=== PATIENT | male | born 1945 | race Caucasian/White ===

== ENCOUNTER → 2016-09-05 | Outpatient (CLI) | payer OTHER ==
[~2016-09-05] MED LIST: ACET1TAB84 PO; CYAN100020 PO; FINA5TAB PO; GABA-112 PO; GABAPENTIN PO; HYDR-5688 PO; METF500T5 PO; MISCCAP80 PO; MULTTAB45 PO; PRD20 PO; RXC5 PO; TAMS0.4C38 PO; TRAM-10 PO; [UNRECOGNIZED DRUG - CODE] NAE
[2016-09-05 12:24] LABS: BLOOD UREA NITROGEN 18 mg/dl (7-18); BUN/CREATININE RATIO 20.3 (10-20); CALCIUM 9.4 mg/dl (8.5-10.1); CARBON DIOXIDE 28 mmol/L (21-32); CHLORIDE 107 mmol/L (98-107); CREATININE 0.88 mg/dl (0.60-1.40); GLUCOSE 143 mg/dl (70-99); POTASSIUM 4.1 mmol/L (3.5-5.1); SODIUM 142 mmol/L (136-145)
[2016-09-05 12:37] LABS: ESTIMATED AVERAGE GLUCOSE 148 mg/dl; HA1C FLAG Normal (Normal)
[2016-09-05 12:38] LABS: CHOLESTEROL/HDL RATIO 2.9
== END | disposition home or self-care (01) ==
LOC: C.LABPVFM 09:35
PROVIDERS: ATTEND Nurse Practitioner
DX: E11.9 Type 2 diabetes mellitus without complications (principal); Z11.59 Encounter for screening for other viral diseases

== ENCOUNTER → 2016-09-11 | Outpatient (CLI) | payer OTHER ==
--- NOTE | 2016-09-11 11:07 | DIAGNOSTIC IMAGING REPORT ---
ANKLE BRACHIAL INDEX COMPLETE ULTRASOUND CLINICAL HISTORY: LEG PAIN COMPARISON STUDY: None. FINDINGS: On the right, the ankle brachial index measured with the posterior tibial artery was 1.0 and the dorsalis pedis artery was 0.98. On the left, the ankle-brachial index measured with the posterior tibial artery was 0.95 and the dorsalis pedis artery was 0.96. IMPRESSION: Normal bilateral ankle brachial indices as described above. Electronically signed by: Víctor Fisher M.D. 09/11/2016 11:06 AM Dictated Date/Time: 09/11/2016 11:05 AM
--- NOTE | 2016-09-11 12:57 | DIAGNOSTIC IMAGING REPORT ---
ULTRASOUND BILATERAL LOWER EXTREMITY ARTERIAL CLINICAL HISTORY: Chronic leg pain. COMPARISON STUDY: No priors. TECHNIQUE: Real-time, grayscale, and color Doppler sonography of the arteries of the right and left lower extremity is performed from the inguinal crease to the foot. FINDINGS: Right lower extremity: No significant atherosclerotic plaque is identified. There are triphasic arterial waveforms in the right common femoral artery with velocities measuring up to 106 cm/s. The profunda femoris artery is patent with velocities measuring up to 66 cm/s. There are normal triphasic arterial waveforms in the right superficial femoral artery with velocities measuring up to 109 cm/s. There are triphasic waveforms in the popliteal artery with velocities measuring up to 90 cm/s. There is three-vessel runoff to the foot. The dorsalis pedis artery is patent with velocities measuring up to 87 cm/s. Left lower extremity: No significant atherosclerotic plaque is identified in the arteries of the left lower extremity. There are normal triphasic arterial waveforms in the left common femoral artery with velocities measuring up to 66 cm/s. The left profunda femoris artery is patent with velocities measuring up to 73 cm/s. Triphasic waveforms are seen throughout the left superficial femoral artery with velocities measuring up to 113 cm/s. There are triphasic waveforms in the popliteal artery with velocities measuring up to 107 cm/s. There is three-vessel runoff to the left foot. Velocities in the left dorsalis pedis artery measure up to 71 cm/s. IMPRESSION: There is no sonographic evidence of high-grade stenosis or focal vessel cut-off throughout the arteries of the right or left lower extremity. See above. Dictated: 09/11/2016 12:22 PM Transcribed: 09/11/2016 12:57 PM [email or web address]_Tone Electronically signed by: Brenden Morales M.D. 09/11/2016 1:02 PM Dictated Date/Time: 09/11/2016 12:22 PM
== END | disposition home or self-care (01) ==
LOC: C.ULTR 09:28
PROVIDERS: ATTEND Nurse Practitioner
DX: R20.9 Unspecified disturbances of skin sensation (principal); M79.605 Pain in left leg; M79.604 Pain in right leg

== ENCOUNTER → 2016-11-13 | Outpatient (CLI) | payer OTHER ==
[~2016-11-13] MED LIST changes: +AZITTAB PO; +FRRS300 PO; +NSF10F NAE; +XRL10 PO
== END | disposition home or self-care (01) ==
LOC: C.LABSPEC 17:47
PROVIDERS: ATTEND Urology
DX: R35.0 Frequency of micturition (principal); N40.1 Benign prostatic hyperplasia with lower urinary tract symptoms

== ENCOUNTER 2016-12-20 13:11 | Emergency (ER) | payer OTHER ==
[~2016-12-20] VITALS: Ht 162.6 cm; Wt 98.0 kg
[~2016-12-20 13:11] MED LIST changes: -ACET1TAB84 PO; -AZITTAB PO; -FRRS300 PO; -GABA-112 PO; -GABAPENTIN PO; -HYDR-5688 PO; -MISCCAP80 PO; -NSF10F NAE; -RXC5 PO; -TRAM-10 PO; -XRL10 PO; -[UNRECOGNIZED DRUG - CODE] NAE
[2016-12-20 13:21] VITALS: TEMP 36.7; Ht 162.6 cm; Wt 98.0 kg
[2016-12-20] MEDS ORDERED: HYDROCODONE/ACETAMOPHEN 5/325MG TAB PO STA (14:29)
--- NOTE | 2016-12-20 15:06 | DIAGNOSTIC IMAGING REPORT ---
LEFT KNEE 1 OR 2 VIEWS ROUTINE CLINICAL HISTORY: Left knee pain COMPARISON: None. DISCUSSION: No acute fractures are visualized. There are moderately advanced osteoarthritic changes most pronounced involving the medial joint compartment and patellofemoral joint. There is a probable small medial joint compartment loose body. There is a very small supratentorial joint effusion. Irregularity anterior tibial tuberosity is felt to be chronic. IMPRESSION: No acute fractures. Moderately advanced osteoarthritic changes. Electronically signed by: Lexa Park M.D. 12/20/2016 3:05 PM Dictated Date/Time: 12/20/2016 3:04 PM
[2016-12-20 15:27] LABS: BASO % 0.2 %; BASO ABS # 0.01 K/uL (0-0.2); COMPLETE YES; EOS % 2.2 %; IG% 0.2 %; LYMPH % 39.7 %; LYMPH ABS # 2.12 K/uL (1.2-3.4); MEAN CELL VOLUME 85.8 fL (80-100); MEAN CORPUSCULAR HEMOGLOBIN 29.9 pg (25-34); MEAN CORPUSCULAR HGB CONC 34.8 g/dl (32-36); MEAN PLATELET VOLUME 9.9 fL (7.4-10.4); MONO % 6.7 %; PLATELET COUNT 190 K/uL (130-400); RED BLOOD COUNT 5.36 M/uL (4.7-6.1); WHITE BLOOD COUNT 5.34 K/uL (4.8-10.8)
[2016-12-20] MEDS ORDERED: MISCCAP80 PO (15:46)
--- NOTE | 2016-12-20 15:47 | DIAGNOSTIC IMAGING REPORT ---
LEFT LOWER EXTREMITY VENOUS DOPPLER CLINICAL HISTORY: Left leg pain. COMPARISON STUDY: No previous studies for comparison. TECHNIQUE: Sonography of the deep venous system of the left lower extremity was performed. Compression and augmentation were evaluated. FINDINGS: The left common femoral, superficial femoral and popliteal veins were compressible. Augmentation was normal. Flow was shown within the deep calf vessels. IMPRESSION: No evidence of deep venous thrombus within the left lower extremity. Electronically signed by: Oliver Cobos M.D. 12/20/2016 3:45 PM Dictated Date/Time: 12/20/2016 3:45 PM
[2016-12-20] MEDS ORDERED: GABAPENTIN PO (15:49)
[2016-12-20 15:53] LABS: ALT/SGPT 23 U/L (12-78); AST/SGOT 7 U/L (15-37); BLOOD UREA NITROGEN 16 mg/dl (7-18); BUN/CREATININE RATIO 19.4 (10-20); CARBON DIOXIDE 29 mmol/L (21-32); CHLORIDE 107 mmol/L (98-107); CREATININE 0.81 mg/dl (0.60-1.40); GLUCOSE 112 mg/dl (70-99); POTASSIUM 3.9 mmol/L (3.5-5.1); SODIUM 142 mmol/L (136-145); URIC ACID 3.5 mg/dl (2.6-7.2)
[2016-12-20 16:04] LABS: ALKALINE PHOSPHATASE 99 U/L (45-117); C-REACTIVE PROTEIN < 0.29 mg/dl (0-0.29)
[2016-12-20 16:26] LABS: LYME DISEASE AB IGG NEG (NEG); LYME DISEASE AB IGM NEG (NEG)
[2016-12-20] MEDS ORDERED: HYDR-5688 PO (16:47)
[2016-12-20 17:05] VITALS: BP 165/91; PULSE 86; O2SAT 96
--- NOTE | 2016-12-20 18:01 | EMERGENCY ROOM VISIT NOTE ---
History Report prepared by Karli: Claritza Pimentel Under the Supervision of: Dr. Oscar James M.D. First contact with patient: 14:12 Chief Complaint: KNEEPAIN Stated Complaint: KNEE, SEVERE LOWER LEG PAIN History of Present Illness The patient is a 71 year old male who presents to the Emergency Room with complaints of waxing and waning left lower extremity pain starting about 2 weeks ago. The patient had a left knee surgery in mid-October. About 2 weeks ago, the patient started having worsening left knee pain. He is unable to put weight on the left knee. He also started having pain radiating up and down the left leg. He currently rates a pain intensity of 7/10. He has worsening pain with sitting and lying down. He denies any recent falls. His next appointment with his orthopedic surgeon is on December 24. Pt denies LOC, headache, fevers, chills, diaphoresis, visual changes, neck pain, chest pain, breathing difficulties, nausea, vomiting, abdominal pain, back pain, melena, hematochezia, urinary symptoms, numbness, weakness, lymphadenopathy, rash, or other complaints. Source of History: patient Onset: about 2 weeks ago Position: other (left lower extremity ) Symptom Intensity: 7/10 Timing: waxes/wanes Modifying Factors (Worsening): other (sitting and lying down) Review of Systems See HPI for pertinent positives and negatives. A total of ten systems were reviewed and were otherwise negative. Past Medical & Surgical Surgical Problems: (1) H/O left knee surgery (2) Previous back surgery Family History FHx: heart disease Social History Smoking Status: Never Smoker Drug Use: none Marital Status: Housing Status: lives with family Current/Historical Medications Scheduled Metformin Hcl Er (Glucophage Er), 500 MG PO BID Multiple Vitamin (Multiple Vitamin), 1 TAB PO DAILY Probiotic Product (Probiotic), 1 CAP PO DAILY Tamsulosin Hcl (Flomax), 0.4 MG PO DAILY [Gabapentin], 1 DOSE PO TID Scheduled PRN Hydrocodone/Acetaminophen 5MG/325MG ([place] 5MG/325MG), 1-2 TABS PO Q6H PRN for Pain Allergies Coded Allergies: Aspirin (Verified Allergy, Unknown, HIVES W/ CONTINUED USE, 11/20/15) Latex1 -Allergic Contact Dermititis (Unverified Allergy, Unknown, dermatitis, 11/20/15) Celecoxib (Verified Adverse Reaction, Mild, BLOOD IN STOOL, 11/20/15) Rofecoxib (Verified Adverse Reaction, Mild, BLOOD IN STOOL, 11/20/15) Physical Exam Vital Signs Date Time Temp Pulse Resp B/P Pulse Ox O2 Delivery O2 Flow Rate FiO2 12/20/16 17:05 86 20 165/91 96 Room Air 12/20/16 15:51 70 18 152/88 98 Room Air 12/20/16 14:39 75 18 159/96 95 Room Air 12/20/16 13:21 36.7 79 18 180/108 97 Physical Exam GENERAL: Awake, alert, uncomfortable-appearing, in no distress HENT: Normocephalic, atraumatic. Oropharynx unremarkable. EYES: Normal conjunctiva. Sclera non-icteric. NECK: Supple. No nuchal rigidity. FROM. No JVD. RESPIRATORY: Clear to auscultation. CARDIAC: Regular rate, normal rhythm. Extremities warm and well perfused. Pulses equal. ABDOMEN: Soft, non-distended. No tenderness to palpation. No rebound or guarding. No masses. RECTAL: Deferred. MUSCULOSKELETAL: Chest examination reveals no tenderness. The back is symmetrical on inspection without obvious abnormality. There is no CVA tenderness to palpation. No joint edema. LOWER EXTREMITIES: Calves are equal size bilaterally and non-tender. No edema. No discoloration. Range of motion is limit of the left knee, mild tenderness of the knee, no swelling, no laxity. Mild hamstring tenderness on the left side. NEURO: Normal sensorium. No sensory or motor deficits noted. SKIN: No rash or jaundice noted. Medical Decision & Procedures ER Provider Diagnostic Interpretation: X-ray: Per my interpretation, radiologist review. LEFT KNEE 1 OR 2 VIEWS ROUTINE CLINICAL HISTORY: Left knee pain COMPARISON: None. DISCUSSION: No acute fractures are visualized. There are moderately advanced osteoarthritic changes most pronounced involving the medial joint compartment and patellofemoral joint. There is a probable small medial joint compartment loose body. There is a very small supratentorial joint effusion. Irregularity anterior tibial tuberosity is felt to be chronic. IMPRESSION: No acute fractures. Moderately advanced osteoarthritic changes. Electronically signed by: Lexa Park M.D. 12/20/2016 3:05 PM Dictated Date/Time: 12/20/2016 3:04 PM US: Radiology results as stated below per my review and radiologist interpretation LEFT LOWER EXTREMITY VENOUS DOPPLER CLINICAL HISTORY: Left leg pain. COMPARISON STUDY: No previous studies for comparison. TECHNIQUE: Sonography of the deep venous system of the left lower extremity was performed. Compression and augmentation were evaluated. FINDINGS: The left common femoral, superficial femoral and popliteal veins were compressible. Augmentation was normal. Flow was shown within the deep calf vessels. IMPRESSION: No evidence of deep venous thrombus within the left lower extremity. Electronically signed by: Oliver Cobos M.D. 12/20/2016 3:45 PM Dictated Date/Time: 12/20/2016 3:45 PM Laboratory Results 12/20/16 15:14 Red Blood Count 5.36, Mean Corpuscular Volume 85.8, Mean Corpuscular Hemoglobin 29.9, Mean Corpuscular Hemoglobin Concent 34.8, Mean Platelet Volume 9.9, Neutrophils (%) (Auto) 51.0, Lymphocytes (%) (Auto) 39.7, Monocytes (%) (Auto) 6.7, Eosinophils (%) (Auto) 2.2, Basophils (%) (Auto) 0.2, Neutrophils # (Auto) 2.72, Lymphocytes # (Auto) 2.12, Monocytes # (Auto) 0.36, Eosinophils # (Auto) 0.12, Basophils # (Auto) 0.01 12/20/16 15:14 Test 12/20/16 15:14 White Blood Count 5.34 K/uL (4.8-10.8) Red Blood Count 5.36 M/uL (4.7-6.1) Hemoglobin 16.0 g/dL (14.0-18.0) Hematocrit 46.0 % (42-52) Mean Corpuscular Volume 85.8 fL (80-100) Mean Corpuscular Hemoglobin 29.9 pg (25-34) Mean Corpuscular Hemoglobin Concent 34.8 g/dl (32-36) Platelet Count 190 K/uL (130-400) Mean Platelet Volume 9.9 fL (7.4-10.4) Neutrophils (%) (Auto) 51.0 % Lymphocytes (%) (Auto) 39.7 % Monocytes (%) (Auto) 6.7 % Eosinophils (%) (Auto) 2.2 % Basophils (%) (Auto) 0.2 % Neutrophils # (Auto) 2.72 K/uL (1.4-6.5) Lymphocytes # (Auto) 2.12 K/uL (1.2-3.4) Monocytes # (Auto) 0.36 K/uL (0.11-0.59) Eosinophils # (Auto) 0.12 K/uL (0-0.5) Basophils # (Auto) 0.01 K/uL (0-0.2) RDW Standard Deviation 41.2 fL (36.4-46.3) RDW Coefficient of Variation 13.0 % (11.5-14.5) Immature Granulocyte % (Auto) 0.2 % Immature Granulocyte # (Auto) 0.01 K/uL (0.00-0.02) Erythrocyte Sedimentation Rate 2 mm/hr (0-14) Anion Gap 6.0 mmol/L (3-11) Est Creatinine Clear Calc Drug Dose 89.7 ml/min Estimated GFR () 104.4 Estimated GFR (Non- 90.0 BUN/Creatinine Ratio 19.4 (10-20) Uric Acid 3.5 mg/dl (2.6-7.2) Calcium Level 9.0 mg/dl (8.5-10.1) Total Bilirubin 0.6 mg/dl (0.2-1) Direct Bilirubin 0.2 mg/dl (0-0.2) Aspartate Amino Transf (AST/SGOT) 7 U/L (15-37) Alanine Aminotransferase (ALT/SGPT) 23 U/L (12-78) Alkaline Phosphatase 99 U/L (45-117) C-Reactive Protein < 0.29 mg/dl (0-0.29) Total Protein 7.2 gm/dl (6.4-8.2) Albumin 3.8 gm/dl (3.4-5.0) Thyroid Stimulating Hormone (TSH) 1.930 uIu/ml (0.300-4.500) Lyme Disease IgG Antibody NEG (NEG) Lyme Disease IgM Antibody NEG (NEG) Laboratory results reviewed by me Medications Administered Medications (Trade) Dose Ordered Sig/Heriberto Route Start Time Stop Time Status Last Admin Dose Admin Acetaminophen/ Hydrocodone Bitart ([place] 5/325 Tab) 1 tab NOW STAT PO 12/20/16 14:29 12/20/16 14:31 DC 12/20/16 14:41 1 TAB ED Course 1412: The patient was evaluated in room C05. A complete history and physical exam was performed. 1429: [place] 5/325 Tab 1 tab PO 1642: I reevaluated the patient. Discussed results and discharge instructions: He verbalized understanding and agreement. The patient is ready for discharge. Medical Decision Prior records reviewed and summarized above. Triage Nursing notes reviewed and agree them. Additional history obtained from his . The patient's history was concerning for ongoing knee pain Differential diagnosis: Etiologies such as arthritis, DJD, lyme, fracture, neurovascular compromise, soft tissue injury, as well as others were entertained. Physical examination: Consistent with exacerbation of chronic knee pain ER treatment provided: Oral [place] On reassessment the patient felt better. Diagnostics interpreted by me: The labs revealed an unremarkable CBC, coags, Lyme screen, ESR, and chemistry panel. Imaging studies: Xray and ultrasound as above. The patient has a history of knee problems. His x-ray showed degenerative changes. No DVT noted. The patient felt better with the [place]. He does not have pain prescription at home. I discussed pain management until his follow- up on Friday with orthopedics. The patient was in agreement. If he worsens in any way he will come back to the emergency department for reevaluation. By the evaluation outlined above emergent etiologies such as fracture, dislocation, neurovascular compromise, compartment syndrome, infections, as well as others were deemed relatively unlikely. The patient and were informed about the findings as listed above. All questions were answered and they were pleased with the treatment. Return instructions were outlined and the patient was discharged in stable condition. Prescription management: [place] Referral: The patient was referred to Dr. Martinez of Orthopedics for follow-up care. The chart was completed utilizing [employer] Speech voice recognition software. Grammatical errors, random word insertions, pronoun errors, and incomplete sentences are an occasional consequence of this system due to software limitations, ambient noise, and hardware issues. Any formal questions or concerns about the content, text, or information contained within the body of this dictation should be directly addressed to the physician for clarification. [place] Drug Monitoring Program Search Results: patient reviewed within database, no issues identified Impression Primary Impression: Knee pain Scribe Attestation The scribe's documentation has been prepared under my direction and personally reviewed by me in its entirety. I confirm that the note above accurately reflects all work, treatment, procedures, and medical decision making performed by me. Departure Information Dispostion Home / Self-Care Prescriptions Hydrocodone/Acetaminophen 5MG/325MG ([place] 5MG/325MG) Tab 1-2 TABS PO Q6H Y for Pain, #20 TAB Prov: Oscar James MD 12/20/16 Referrals Julia uNnez C.R.N.P (PCP) Forms HOME CARE DOCUMENTATION FORM, IMPORTANT VISIT INFORMATION Patient Instructions My [facility] Additional Instructions ORTHOPEDIC INSTRUCTIONS: DO NOT drive, drink alcohol, operate machinery, or perform dangerous activities today. You were given medications in the ER that can affect your ability to safely function or operate a vehicle. Hydrocodone/acetaminophen 5/325mg: Take 1-2 pills every 6 hours as needed for pain. Avoid additional Acetaminophen/Tylenol, alcohol, operating machinery or dangerous equipment, working on ladders or roofs, DRIVING, or situations where being under the influence may be dangerous. It is recommended to use a stool softener such as Colace, 100mg twice daily while taking this medication to avoid constipation. Ice compresses for 20 minutes at a time four times daily for 2-3 days. Use the crutch or cane as instructed. Rest and elevate your injury. Return to the ER immediately for any numbness, tingling, severe pain, extreme swelling in the extremity or as needed. Follow-up with orthopedics as scheduled. Problem Qualifiers Primary Impression: Knee pain Laterality: left Chronicity: chronic Qualified Codes: M25.562 - Pain in left knee; G89.29 - Other chronic pain
[2017-03-10] MEDS ORDERED: GABA-112 PO (11:45)
[2017-03-10] MEDS ORDERED: TRAM-10 PO (12:01)
[2017-04-01] MEDS ORDERED: RXC5 PO (13:21)
[2017-04-02] MEDS ORDERED: TRAM-10 PO (09:54)
[2017-06-02] MEDS ORDERED: NSF10F NAE (11:10)
[2017-06-29] MEDS ORDERED: XRL10 PO (06:32)
[2017-06-29] MEDS ORDERED: RXC5 PO (06:32)
== END 2016-12-20 17:08 | disposition home or self-care (01) ==
LOC: C.EDB 13:15 → C.EDC 17:08
DX: M25.562 Pain in left knee (principal); G89.29 Other chronic pain; Z82.49 Family history of ischemic heart disease and other diseases of the circulatory system; Z79.899 Other long term (current) drug therapy; M79.605 Pain in left leg

== ENCOUNTER → 2017-03-03 | Outpatient (CLI) | payer OTHER ==
[~2017-03-03] MED LIST changes: +ACET1TAB84 PO; -CYAN100020 PO; -FINA5TAB PO; +GABA-112 PO; +GABAPENTIN PO; +HYDR-5688 PO; +MISCCAP80 PO; -PRD20 PO; +RXC5 PO; +TRAM-10 PO; +[UNRECOGNIZED DRUG - CODE] NAE
[2017-03-04 05:55] LABS: ESTIMATED AVERAGE GLUCOSE 140 mg/dl; HA1C FLAG Normal (Normal)
== END | disposition home or self-care (01) ==
LOC: C.LABPVFM 11:41
PROVIDERS: ATTEND Nurse Practitioner
DX: E11.9 Type 2 diabetes mellitus without complications (principal)

== ENCOUNTER 2017-04-01 05:19 | Inpatient (IN) | payer OTHER ==
[2017-03-10 11:19] VITALS: BMI 35.0
[2017-03-10 12:00] LABS: BASO % 0.1 %; BASO ABS # 0.01 K/uL (0-0.2); COMPLETE YES; HEMATOCRIT 42.9 % (42-52); IG% 0.1 %; LYMPH ABS # 3.03 K/uL (1.2-3.4); MEAN CORPUSCULAR HGB CONC 33.3 g/dl (32-36); MEAN PLATELET VOLUME 10.4 fL (7.4-10.4); MONO % 5.3 %; NEUT % 49.5 %; PLATELET COUNT 199 K/uL (130-400); RED BLOOD COUNT 4.93 M/uL (4.7-6.1); WHITE BLOOD COUNT 7.04 K/uL (4.8-10.8)
--- NOTE | 2017-03-10 12:03 | PAT Medication Instructions ---
Service Date Mar 10, 2017. Current Home Medication List Gabapentin (Neurontin), 100 MG PO HS Metformin Hcl Er (Glucophage Er), 500 MG PO BID Multiple Vitamin (Multiple Vitamin), 1 TAB PO QPM Probiotic Product (Probiotic), 1 CAP PO QDL Tamsulosin Hcl (Flomax), 0.4 MG PO QDL Tramadol (Ultram), 50 MG PO Q6 PRN for Pain Medication Instructions For Your Scheduled Surgery - Hold the following medications 48 hours prior to surgery: Metformin Hcl Er (Glucophage Er), 500 MG PO BID - Hold the following medications the morning of surgery: Probiotic Product (Probiotic), 1 CAP PO QDL - Take the following medications the morning of surgery with a sip of water OTHERWISE NOTHING TO EAT OR DRINK AFTER MIDNIGHT: Tramadol (Ultram), 50 MG PO Q6 PRN for Pain (may take if needed up to 4 hours prior to surgery) Tamsulosin Hcl (Flomax), 0.4 MG PO QDL (time permitting) - Take the following medications as scheduled the night before surgery: Tramadol (Ultram), 50 MG PO Q6 PRN for Pain Gabapentin (Neurontin), 100 MG PO HS Multiple Vitamin (Multiple Vitamin), 1 TAB PO QPM If you have any questions please call us at [phone] or [phone] or [phone]
[2017-03-10 12:09] LABS: URINE APPEARANCE CLEAR (CLEAR); URINE BILIRUBIN NEG (NEG); URINE COLOR YELLOW; URINE NITRITE NEG (NEG); URINE SPECIFIC GRAVITY 1.018 (1.000-1.030); UROBILINOGEN NEG (NEG); ZZUR CULT IF INDIC CLEAN CATCH NO
[2017-03-10 12:14] LABS: BUN/CREATININE RATIO 21.2 (10-20); CALCIUM 8.9 mg/dl (8.5-10.1); CREATININE 0.84 mg/dl (0.60-1.40); POTASSIUM 4.1 mmol/L (3.5-5.1)
[2017-03-10 12:25] LABS: MANUAL MICROSCOPIC REQUIRED? NO; REVIEW REQ? NO
--- NOTE | 2017-03-10 12:42 | DIAGNOSTIC IMAGING REPORT ---
CHEST PREADMISSION(PA/LAT) HISTORY: Preop. COMPARISON: Chest 11/20/2015. FINDINGS: The lungs are clear. Cardiac silhouette is normal in size. No pleural effusions. No pneumothorax. IMPRESSION: No acute process. Electronically signed by: Víctor Fisher M.D. 03/10/2017 12:40 PM Dictated Date/Time: 03/10/2017 12:36 PM
[~2017-04-01] VITALS: Ht 162.6 cm; Wt 94.0 kg
[2017-04-01] VITALS (16 sets, daily range): BP systolic 154–184; BP diastolic 78–95; PULSE 58–91; TEMP 36.3–36.9; O2SAT 94–99; Ht 162.6 cm; Wt 94.0 kg
[~2017-04-01 05:19] MED LIST changes: -ACET1TAB84 PO; -GABAPENTIN PO; -HYDR-5688 PO; -RXC5 PO; -[UNRECOGNIZED DRUG - CODE] NAE
[2017-04-01] MEDS ORDERED: CEFAZOLIN 2000 MG/60 ML D5W 60 ML IV SCH (06:00)
[2017-04-01] MEDS ORDERED: LACTATED RINGER'S 1000ML 1,000 ML IV SCH (06:00)
[2017-04-01] MEDS ORDERED: ACET1TAB84 PO (06:01)
[2017-04-01] MEDS ORDERED: [UNRECOGNIZED DRUG - CODE] NAE (06:01)
[2017-04-01] MEDS ORDERED: MIDAZOLAM HCL 1 MG/ML 2ML VIAL ONE (06:37)
[2017-04-01] MEDS ORDERED: FENTANYL CITRATE INJ 50 MCG/1 ML 2 ML VIAL ONE ×4 (06:37→09:28)
[2017-04-01] MEDS ORDERED: SODIUM CHLORIDE 0.9% PF 50 ML VIAL ONE (06:57)
[2017-04-01] MEDS ORDERED: BACITRACIN 50000 UNIT VIAL ONE (06:57)
[2017-04-01] MEDS ORDERED: ATROPINE SULFATE 0.1 MG/ML 5ML SYR IV PRN (07:00)
[2017-04-01] MEDS ORDERED: ONDANSETRON INJ 2 MG/ML 2 ML VIAL IV PRN ×2 (07:00→09:45)
[2017-04-01] MEDS ORDERED: EpHEDrine SULFATE INJ 50 MG/ML AMP IV PRN (07:00)
[2017-04-01] MEDS ORDERED: HYDROmorphone INJ 1 MG/ML SYR IV PRN ×2 (07:00→12:15)
[2017-04-01] MEDS ORDERED: FENTANYL CITRATE INJ 50 MCG/1 ML 2 ML VIAL IV PRN (07:00)
[2017-04-01] MEDS ORDERED: MEPERIDINE HCL 25 MG/ML CARP IV PRN (07:00)
--- NOTE | 2017-04-01 07:32 | History & Physical Bridge Note ---
H&P Re-Evaluation Bridge Note: I have examined the patient, reviewed the History & Physical and in the interval since the performance of the History & Physical I have noted the following changes of clinical significance: No changes noted
--- NOTE | 2017-04-01 07:33 | History and Physical ---
History & Physical Date Apr 01, 2017. Chief Complaint Neck and arm pain History of Present Illness The patient is a 71 year old male with complaints of Past Medical/Surgical History Surgical Problems: (1) H/O left knee surgery (2) Previous back surgery Additional History Hepatic Disease: No Endocrine Disorder: No Kidney Disease: No Hypertension: No Heart Disease: No Bleeding Tendencies: No Infectious Diseases: No Allergies Coded Allergies: Aspirin (Verified Allergy, Intermediate, HIVES W/ CONTINUED USE, 04/01/17) Latex1 -Allergic Contact Dermititis (Verified Allergy, Intermediate, dermatitis, 04/01/17) Celecoxib (Verified Adverse Reaction, Mild, BLOOD IN STOOL, 04/01/17) Rofecoxib (Verified Adverse Reaction, Mild, BLOOD IN STOOL, 04/01/17) Home Medications Scheduled Acetaminophen (Tylenol Arthritis Ext Rel), 650 MG PO Q8H Gabapentin (Neurontin), 100 MG PO HS Hypertonic Nasal Wash (Sinus Rinse Kit), MARIA LUISA prn Metformin Hcl Er (Glucophage Er), 500 MG PO BID Multiple Vitamin (Multiple Vitamin), 1 TAB PO QPM Probiotic Product (Probiotic), 1 CAP PO QDL Tamsulosin Hcl (Flomax), 0.4 MG PO QDL Scheduled PRN Tramadol (Ultram), 50 MG PO Q6 PRN for Pain Physical Examination Skin: warm/dry, no rash Eyes: normal inspection, EOMI, sclerae normal ENT: normal ENT inspection, pharynx normal Head: normocephalic, atraumatic Neck: supple, no adenopathy, trachea midline Respiratory/Chest: lungs clear, normal breath sounds, no respiratory distress Cardiovascular: regular rate, rhythm, no edema, no murmur Abdomen / GI: normal bowel sounds, non tender Back: normal inspection Extremities: normal inspection, normal range of motion Neurologic/Psych: no motor/sensory deficits, alert, normal reflexes, oriented x 3 Diagnosis Cervical spinal stenosis Plan of Treatment Corpectomy C4 ACDF C5 6
[2017-04-01] MEDS ORDERED: HYDROmorphone INJ 2 MG/ML SYR/VIAL ONE ×3 (08:05→09:50)
[2017-04-01] MEDS ORDERED: ONDANSETRON INJ 2 MG/ML 2 ML VIAL ONE ×2 (09:11→09:30)
[2017-04-01] MEDS ORDERED: ROCURONIUM BROMIDE 10 MG/ML 5 ML VIAL IV ONE (09:11)
[2017-04-01] MEDS ORDERED: DEXAMETHASONE SOD INJ 4 MG/ML VIAL ONE (09:11)
[2017-04-01] MEDS ORDERED: LIDOCAINE HCL 2% 2 ML VIAL (20MG/ML) ONE (09:11)
[2017-04-01] MEDS ORDERED: PROPOFOL IV EMULSION 10 MG/ML 20 ML VIAL IV ONE (09:11)
[2017-04-01] MEDS ORDERED: NEOSTIGMINE METHYLSULFATE 1 MG/ML 10ML VIAL ONE (09:30)
[2017-04-01] MEDS ORDERED: GLYCOPYRROLATE INJ 0.2 MG/ML VIAL ONE (09:30)
[2017-04-01] MEDS ORDERED: MAGNESIUM HYDROXIDE SUSP 30 ML UDC PO PRN (09:45)
[2017-04-01] MEDS ORDERED: DO NOT ADMINISTER FLU VACCINE PRN ×3 (09:45)
[2017-04-01] MEDS ORDERED: DiphenhydrAMINE HCL 50 MG/ML VIAL IV PRN (09:45)
[2017-04-01] MEDS ORDERED: NALOXONE HCL 0.4 MG/1 ML VIAL/CARP IV PRN (09:45)
[2017-04-01] MEDS ORDERED: LORAZEPAM INJ 0.5 MG in SYRINGE 0.75 ML IV PRN (09:45)
[2017-04-01] MEDS ORDERED: LORAZEPAM 0.5 MG TAB PO PRN (09:45)
[2017-04-01] MEDS ORDERED: DEXAMETHASONE INJ 8 MG in SYRINGE 0 ML IV PRN (09:45)
[2017-04-01] MEDS ORDERED: RACEPINEPHRINE 2.25% NEBU SOLN 0.5 ML VIAL INH PRN (09:45)
[2017-04-01] MEDS ORDERED: ACETAMINOPHEN IV 1,000 MG in EMPTY BAG 0 ML IV PRN (09:45)
[2017-04-01] MEDS ORDERED: DO NOT ADMINISTER PNEUMOCOCCAL VACCINE PRN ×2 (09:45)
--- NOTE | 2017-04-01 09:59 | [facility] Operative Report ---
Operative Report Operative Date Apr 01, 2017. Pre-Operative Diagnosis cervical spinal stenosis Post-Operative Diagnosis cervical spinal stenosis Procedure(s) Performed #1 anterior cervical corpectomy C4. #2 anterior cervical discectomy C5 6. #3 anterior cervical arthrodesis C3 to C5 C5 to C6. #4 placement peek cage 25 mm in height C3 to C5. 6 mm in height C5 6. #5 placement locally harvested morcellized autograft combined with Kasey bone graft in the interbody cages. #6 application of grimes plate and screws from C3- C6 Surgeon Dr. Andrea Gage Technology Project Manager Surgeon(s) Belia Dong PA-C Estimated Blood Loss 75ML Findings Severe spinal stenosis Specimens no specimens noted per surgeon Dr. Martin Gage Description of Procedure Patient was met with preoperatively case discussed all questions are dressed. After informed consent he was taken back to the operative suite and after intubation placed in the supine position the Dwight table with the head in [place] headholder. The anterior cervical spine was then prepped and draped nostril fashion. With the assistance of fluoroscopy identified the C4 5 disc space and a transverse incision was placed along the right anterior aspect of cervical spine overlying this region. Sharp dissection with the assistance of bipolar cautery was performed onto an exposing the anterior cervical spine from C3 to C6 6. Self-retaining retractor was placed. Complete discectomy of C3 4 was then performed out to the uncovertebral joints bilaterally followed by C45. Then placed [place] distracting pins in C3 C5 to distract across the C4 vertebral body. Complete corpectomies and performed removing all posterior annular fibers and longitudinal ligament and bilateral foraminotomies addressing severe spinal stenosis. After this complete endplates were burred to subcortical bleeding bone and a 25 mm peek cage filled with locally harvested morcellized autograft and Kasey bone grafting tapped in position. The distraction apparatus was removed proceeded to C5 6 complete discectomy performed out to the uncovertebral joints bilaterally.. A 6 mm peek cage filled with locally harvested morcellized autograft and Kasey bone grafting was placed in position. All distracting apparatus was removed the grimes plate and screws applied with the assistance of fluoroscopy. Incision was in copious irrigated explored to ensure there is no damage to signing structures remaining bleeding. 10 round VICENTE drain inserted. Incision then closed with 2 Vicryl in the fascia for Monocryl for final skin closure Steri-Strip sterile dressing placed. Patient awakened taken to PACU stable condition. Please note Belia Gilliam was present at the entire procedure involved in patient positioning complex portions of the procedure and final skin closure. I attest to the content of the Intraoperative Record and any orders documented therein. Any exceptions are noted below.
--- NOTE | 2017-04-01 10:02 | DIAGNOSTIC IMAGING REPORT ---
CERVICAL 2 OR 3 VIEWS HISTORY: 71 years-old Male ACDF C5-6 C4 CORPECTOMY COMPARISON: None available. TECHNIQUE: 3 spot fluoroscopic images of the cervical spine were obtained utilizing 11.3 seconds of fluoroscopy time. FINDINGS/IMPRESSION: Anterior fusion hardware is present which appears to extend from the C3-C6 levels. The lateral views are suboptimal secondary to the inferior extent of the hardware outside the [id number]. There also appears to have been discectomy at these levels. Alignment appears preserved. Please see procedural report for further details. The above report was generated using voice recognition software. It may contain grammatical, syntax or spelling errors. Electronically signed by: Chaitanya Craig M.D. 04/01/2017 10:01 AM Dictated Date/Time: 04/01/2017 9:57 AM
[2017-04-01] MEDS ORDERED: LABETALOL HCL IV 5 MG/ML 20ML IV ONE (10:03)
[2017-04-01] MEDS: LABETALOL HCL IV 5 MG/ML 20ML IV PRN ×3 (10:19→10:30)
--- NOTE | 2017-04-01 10:41 | Anesthesiology Progress Note ---
Anesthesia Post Op Note Date & Time Apr 01, 2017 at 10:41 Vital Signs Pain Intensity: 0 Vital Signs Past 12 Hours Date Time Temp Pulse Resp B/P (MAP) Pulse Ox O2 Delivery O2 Flow Rate FiO2 04/01/17 10:35 64 18 184/82 97 Oxymask 4 04/01/17 10:25 74 18 189/94 96 Oxymask 4 04/01/17 10:15 74 18 185/100 98 Oxymask 15 04/01/17 10:05 74 18 157/100 96 Oxymask 15 04/01/17 09:57 36.4 73 14 167/81 96 Oxymask 15 04/01/17 05:40 36.7 58 18 177/89 98 Room Air Notes Mental Status: alert / awake / arousable, participated in evaluation Pt Amnestic to Procedure: Yes Nausea / Vomiting: adequately controlled Pain: adequately controlled Airway Patency, RR, SpO2: stable & adequate BP & HR: stable & adequate Hydration State: stable & adequate Anesthetic Complications: no major complications apparent
[2017-04-01] MEDS: SODIUM CHLORIDE 0.9% 1000ML 1,000 ML IV SCH ×2 (12:00→23:37)
[2017-04-01] MEDS: OXYCODONE HCL IR 5 MG TAB (IMMEDIATE RELEASE) PO PRN ×3 (12:25→22:09)
[2017-04-01] MEDS ORDERED: SCOPOLAMINE 1.5 MG TDSY TD SCH (12:30)
[2017-04-01] MEDS ORDERED: FLOSEAL HEMOSTATIC MATRIX 5ML TOP ONE (12:47)
[2017-04-01] MEDS ORDERED: RXC5 PO (13:21)
--- NOTE | 2017-04-01 13:23 | Discharge Instructions ---
Discharge Instructions Date of Service Apr 01, 2017. Admission Reason for Admission: Cervical Spinal Stenosis Discharge Discharge Diagnosis / Problem: cervical spinal stenosis with myelopathy Discharge Goals Goal(s): Improve function Activity Recommendations Activity Limitations: per Instructions/Follow-up section . Instructions / Follow-Up Instructions / Follow-Up ACTIVITY RECOMMENDATIONS: SELF CARE INSTRUCTIONS AFTER CERVICAL FUSIONS 1. No smoking. Smoking drastically decreases the chance of a solid fusion. 2. No bending, lifting more than 5 pounds, or twisting (roll like a log when turning in bed). 3. You may shower 3 days after surgery. Thoroughly dry wound. Do not soak in the tub. 4. Cervical collar: Must be worn at all times including sleeping. You may remove the brace only to bath, eat and if you are sitting in a recliner. 5. Please walk as much as you can for exercise. Gradually increase the distance that you walk as your endurance increases. SPECIAL CARE INSTRUCTIONS: VERY IMPORTANT TO READ AND REVIEW A. Do not take any anti-inflammatory medications (i.e. Indocin, Advil, Aspirin, Naprosyn, Aleve, Motrin, etc.) as these may inhibit the chance of a solid fusion. Tylenol is okay to take. B. Your surgical incision has been closed with a cosmetic suture under the skin that will dissolve in about 6 weeks. In 14 days, you can use a pair of clean scissors and cut the suture that is left outside of the skin at the ends of your incision. C. Complications are uncommon, but please contact us if you have any signs or symptoms of: 1. wound infection (fever higher than 102.5 degrees F, redness, separation of wound, drainage, or increasing pain from the incision) 2. blood clots in legs (pain, swelling, redness and warmth in legs) 3. urinary tract infection (fever higher than 102.5 degrees, burning upon urination or increased frequency of urination) 4. nerve problems (inability to walk on your toes or heels, numbness, loss of bowel or bladder control) 5. any other symptoms that concern you. D. Please call the office at if you have any concerns or questions about your operation or recovery. MANAGING PAIN AFTER SPINAL SURGERY 1. Narcotic medication is intended for short-term use and will be provided for surgical pain. Surgical pain usually lasts for a period of 4-6 weeks. Narcotic medication includes Percocet, Vicodin, Darvocet, Tylenol #3 or Lortab. 2. Longer-term pain is more appropriately treated with non-narcotic medication such as Tylenol ES. 3. Muscle spasm is not appropriately treated with narcotics. Muscle relaxers such as Soma, Flexeril or Skelaxin can be used along with Tylenol ES. 4. Remember that we all live with some "aches and pains". This is not unusual or uncommon after an injury or as we get older. 5. We will provide appropriate medication within the normal guidelines of their prescribed use. We will also be very cautious and aware of potential abuse and extended duration of patients' medication needs. 6. Please allow 2-3 days to process refills. Prescriptions will not be mailed but must be picked up at the office. FOLLOW UP VISIT: Keep your scheduled follow-up appointment. Any questions, please call the office at . Current Hospital Diet Patient's current hospital diet: Clear Liquid Diet Discharge Diet Recommended Diet: Regular Diet Procedures Procedures Performed: #1 anterior cervical corpectomy C4. #2 anterior cervical discectomy C5 6. #3 anterior cervical arthrodesis C3 to C5 C5 to C6. #4 placement peek cage 25 mm in height C3 to C5. 6 mm in height C5 6. #5 placement locally harvested morcellized autograft combined with Kasey bone graft in the interbody cages. #6 application of grimes plate and screws from C3- C6 Pending Studies Studies pending at discharge: no Laboratory Results Hemoglobin A1c Test 03/03/17 11:45 Range/Units Estimated Average Glucose 140 mg/dl Hemoglobin A1c 6.5 H 4.5-5.6 % Medical Emergencies . Who to Call and When: Medical Emergencies: If at any time you feel your situation is an emergency, please call 911 immediately. . Non-Emergent Contact Non-Emergency issues call your: Primary Care Provider . "Provider Documentation" section prepared by Andrea Gage. . VTE Core Measure Inpt VTE Proph given/why not?: Oleg Jonas, SCD's
[2017-04-01] MEDS: CHECK SCOPOLAMINE PATCH PLACEMENT SCH ×2 (16:11→23:36)
[2017-04-01] MEDS: CEFAZOLIN IV 2,000 MG in DEXTROSE 5% 50ML 50 ML IV SCH (17:41)
[2017-04-01] MEDS: DEXAMETHASONE INJ 6 MG in SYRINGE 0 ML IV SCH (18:17)
[2017-04-01] MEDS: HYDROmorphone INJ 0.5 MG/0.5 ML SYR IV PRN (18:34)
[2017-04-01] MEDS: DOCUSATE SODIUM 100 MG CAP PO SCH (22:08)
[2017-04-02] VITALS (11 sets, daily range): BP systolic 151–175; BP diastolic 73–82; PULSE 65–95; TEMP 36.5–36.9; O2SAT 93–100
[2017-04-02] MEDS: CEFAZOLIN IV 2,000 MG in DEXTROSE 5% 50ML 50 ML IV SCH ×2 (01:35→09:10)
[2017-04-02] MEDS: DEXAMETHASONE INJ 6 MG in SYRINGE 0 ML IV SCH ×2 (01:35→09:10)
[2017-04-02] MEDS: HYDROmorphone INJ 0.5 MG/0.5 ML SYR IV PRN (01:40)
[2017-04-02] MEDS: CHECK SCOPOLAMINE PATCH PLACEMENT SCH (07:11)
--- NOTE | 2017-04-02 08:00 | Anesthesiology Progress Note ---
Anesthesia Post Op Note Date & Time Apr 02, 2017 at 08:00 Vital Signs Pain Intensity: 0.0 Vital Signs Past 12 Hours Date Time Temp Pulse Resp B/P (MAP) Pulse Ox O2 Delivery O2 Flow Rate FiO2 04/02/17 07:52 36.6 72 18 158/81 (106) 96 Nasal Cannula 2.0 04/02/17 07:35 71 16 100 Nasal Cannula 2.0 04/02/17 05:30 36.5 65 16 168/74 95 Nasal Cannula 2.0 Humidified Oxygen 04/02/17 03:45 70 16 98 Nasal Cannula 2.0 04/02/17 03:28 36.9 69 16 157/77 98 Nasal Cannula 2.0 Humidified Oxygen 04/02/17 01:29 36.7 86 16 175/82 98 Nasal Cannula 2.0 Humidified Oxygen 04/01/17 23:39 Nasal Cannula 2.0 Humidified Oxygen 04/01/17 23:38 36.7 77 16 170/78 97 Nasal Cannula 2.0 Humidified Oxygen 04/01/17 23:24 74 16 96 Nasal Cannula 2.0 04/01/17 21:30 36.9 74 16 178/94 94 Nasal Cannula 2.0 04/01/17 20:06 79 16 97 Nasal Cannula 2.0 Notes Mental Status: alert / awake / arousable, participated in evaluation Pt Amnestic to Procedure: Yes Nausea / Vomiting: adequately controlled Pain: adequately controlled Airway Patency, RR, SpO2: stable & adequate BP & HR: stable & adequate Hydration State: stable & adequate Anesthetic Complications: no major complications apparent
[2017-04-02] MEDS: DOCUSATE SODIUM 100 MG CAP PO SCH (09:10)
[2017-04-02] MEDS ORDERED: NURSING VERBAL MED ORDER ONE (09:30)
[2017-04-02] MEDS ORDERED: TRAM-10 PO (09:54)
--- NOTE | 2017-04-02 12:47 | Discharge Summary ---
Orthopedic Discharge Summary Admission Date/Reason Apr 01, 2017 at 06:30 Cervical Spinal Stenosis. Discharge Date/Disposition Apr 02, 2017 Home Diagnosis Principal Diagnosis: Cervical spinal stenosis Admission Physical Exam As per Admitting History & Physical. Hospital Course Patient underwent anterior cervical corpectomy and fusion tolerated this well as taken to the orthopedic 4 postop we. Postoperative day #1 a swallowing well no hoarseness arm symptoms markedly improved VICENTE drain decreasing appropriate least substernally discharge home discharge orders and instructions found on the chart for further review. Discharge Instructions Please refer to the electronic Patient Visit Report (Discharge Instructions) for additional information.
[2017-04-03] MEDS ORDERED: BISACODYL 5 MG TABEC PO PRN (06:00)
[2017-04-03] MEDS ORDERED: BISACODYL 10 MG SUPP PR PRN (06:00)
[2017-04-04] MEDS ORDERED: POLYETHYLENE (MIRALAX) 17 GM PACK PO SCH (09:00)
== END 2017-04-02 13:11 | disposition home or self-care (01) | DRG 473 ==
LOC: C.ACU 05:19 → C.3E 06:30 → ENRESERV 10:45
PROVIDERS: ADMIT Orthopaedic Surgery Orthopaedic Surgery of the Spine; ATTEND Orthopaedic Surgery Orthopaedic Surgery of the Spine
PROC: 0RG2070 Fusion of 2 or more Cervical Vertebral Joints with Autologous Tissue Substitute, Anterior Approach, Anterior Column, Open Approach (ICD-10-PCS; principal; 2017-04-01 07:45)
PROC: 0RG20A0 Fusion of 2 or more Cervical Vertebral Joints with Interbody Fusion Device, Anterior Approach, Anterior Column, Open Approach (ICD-10-PCS; principal; 2017-04-01 07:45)
PROC: 0RT30ZZ Resection of Cervical Vertebral Disc, Open Approach (ICD-10-PCS; principal; 2017-04-01 07:45)
DX: M48.02 Spinal stenosis, cervical region (principal); E11.9 Type 2 diabetes mellitus without complications; Z79.899 Other long term (current) drug therapy; Z79.4 Long term (current) use of insulin

== ENCOUNTER 2017-06-27 05:33 | Inpatient (IN) | payer OTHER ==
[2017-06-02 10:46] VITALS: BMI 36.0
--- NOTE | 2017-06-02 11:36 | PAT Medication Instructions ---
Service Date Jun 02, 2017. Current Home Medication List Acetaminophen (Tylenol Arthritis Ext Rel), 650 MG PO Q8H Metformin Hcl Er (Glucophage Er), 500 MG PO BID Multiple Vitamin (Multiple Vitamin), 1 TAB PO QPM Probiotic Product (Probiotic), 1 CAP PO QDL Sodium Chloride (Saline Flush), 1 APPLN MARIA LUISA DAILY PRN for ALLERGIES Tamsulosin Hcl (Flomax), 0.4 MG PO QDL Tramadol (Ultram), 50 MG PO Q6 PRN for Pain Medication Instructions For Your Scheduled Surgery - Hold the following medications 48 hours prior to surgery: Metformin Hcl Er (Glucophage Er), 500 MG PO BID - Hold the following medications the morning of surgery: Probiotic Product (Probiotic), 1 CAP PO QDL - Take the following medications the morning of surgery with a sip of water: Tamsulosin Hcl (Flomax), 0.4 MG PO QDL Tramadol (Ultram), 50 MG PO Q6 PRN for Pain (if needed, can be taken up to four hours before surgery) Sodium Chloride (Saline Flush), 1 APPLN MARIA LUISA DAILY PRN for ALLERGIES (if needed) Acetaminophen (Tylenol Arthritis Ext Rel), 650 MG PO Q8H (if needed, can be taken up to four hours before surgery) - Take the following medications as scheduled the night before surgery: Tramadol (Ultram), 50 MG PO Q6 PRN for Pain (If needed) Sodium Chloride (Saline Flush), 1 APPLN MARIA LUISA DAILY PRN for ALLERGIES (If needed) Multiple Vitamin (Multiple Vitamin), 1 TAB PO QPM If you have any questions please call us at [phone] or [phone] or [phone]
[2017-06-02 13:05] LABS: URINE APPEARANCE CLEAR (CLEAR); URINE BILIRUBIN NEG (NEG); URINE COLOR YELLOW; URINE NITRITE NEG (NEG); URINE PH 7.5 (4.5-7.5); UROBILINOGEN NEG (NEG)
[2017-06-02 13:06] LABS: MANUAL MICROSCOPIC REQUIRED? NO; REVIEW REQ? NO
[2017-06-02 13:17] LABS: BASO % 0.5 %; BASO ABS # 0.03 K/uL (0-0.2); COMPLETE YES; EOS % 3.7 %; HEMATOCRIT 44.6 % (42-52); IG% 0.2 %; LYMPH % 40.6 %; MEAN CELL VOLUME 86.1 fL (80-100); MEAN CORPUSCULAR HGB CONC 33.6 g/dl (32-36); MONO % 5.5 %; NEUT % 49.5 %; PLATELET COUNT 227 K/uL (130-400); PROTHROMBIN TIME (PATIENT) 10.2 SECONDS (9.0-12.0); RED BLOOD COUNT 5.18 M/uL (4.7-6.1); WHITE BLOOD COUNT 6.16 K/uL (4.8-10.8)
[2017-06-02 14:03] LABS: BUN/CREATININE RATIO 16.2 (10-20); CREATININE 0.9 mg/dl (0.60-1.40); POTASSIUM 4.2 mmol/L (3.5-5.1)
--- NOTE | 2017-06-26 18:48 | HISTORY & PHYSICAL EXAMINATION ---
DATE OF ADMISSION: 06/27/2017 CHIEF COMPLAINT: Bilateral osteoarthritis of knees. HISTORY OF PRESENT ILLNESS: Teofilo is a pleasant 71-year-old male who has been having bilateral knee pain for several years. He has tried extensive conservative treatment including multiple injections and physical therapy, which have not been helping. X-rays and clinical examination have been diagnostic for primary osteoarthritis of both knees. After failing extensive conservative treatment, he has elected to undergo bilateral total knee arthroplasties. He is a self-employed hlal. I did discuss with him the increased risk and complication rate with bilateral knee replacement surgery, but he would still like to proceed. PAST MEDICAL HISTORY: Significant for diabetes and BPH. PAST SURGICAL HISTORY: Significant for sinus surgery, lumbar surgery x2, cervical surgery and knee arthroscopy in the past. ALLERGIES: ASPIRIN, CELEBREX, LATEX. MEDICATIONS: Include Glucophage 500 mg twice a day, probiotics Flomax 0.4 mg daily, Ultram 50 mg as needed for pain. FAMILY HISTORY: Significant for heart disease, diabetes. 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 REVIEW OF SYSTEMS: He complains of bilateral knee pain. All other pertinent review of systems are negative. PHYSICAL EXAMINATION: GENERAL: He is awake, alert and oriented x3. He is in no apparent distress. He is very pleasant. HEENT: Pupils are equal, round and reactive to light. Extraocular motion intact. Oral mucosa is pink and moist. HEART: Regular rate per radial pulse. LUNGS: Eboni symmetrically bilaterally with no audible breath sounds. ABDOMEN: Soft, nontender, nondistended. MUSCULOSKELETAL: On physical examination of his knees, he ambulates independently in the office. He has a slight varus deformity bilaterally. He has good range of motion 0-130 degrees. He has no ligamentous instability. He has no swelling or effusions. He has tenderness to palpation over the medial joint line bilaterally and painless range of motion of his hip. X-rays of the knees do show medial compartmental arthritis, more significant on the left than the right. The weightbearing flexion view shows the right side of arthritis better. He also has had some patellofemoral arthritis bilaterally. IMPRESSION: Bilateral osteoarthritis of the knees. PLAN: We will proceed with bilateral total knee arthroplasty. He understands all the risks, benefits, alternatives to the procedure and would like to proceed. Postoperatively, he will be started on Xarelto for DVT prophylaxis as long as he is up and ambulating. He will be in the hospital 2 midnights for postop medical management.
[2017-06-27] VITALS (8 sets, daily range): BP systolic 129–160; BP diastolic 64–92; PULSE 62–78; TEMP 36.3–36.7; O2SAT 96–100; Ht 162.6 cm; Wt 95.0 kg
[~2017-06-27] VITALS: Ht 162.6 cm; Wt 95.0 kg
[~2017-06-27 05:33] MED LIST changes: +ACET1TAB84 PO; -GABA-112 PO; +NSF10F NAE
[2017-06-27] MEDS ORDERED: CEFAZOLIN 2000MG IV PUSH 10 ML IV SCH (06:00)
[2017-06-27] MEDS ORDERED: FAMOTIDINE 20 MG TAB PO SCH (06:00)
[2017-06-27] MEDS ORDERED: LACTATED RINGER'S 1000ML IV SCH (06:00)
[2017-06-27] MEDS ORDERED: LACTATED RINGER'S 1000ML 1,000 ML IV SCH (06:00)
[2017-06-27] MEDS ORDERED: ROPIVACAINE 5MG/ML 30 ML 150 MG, BUPIVACAINE 0.5% MPF INJ 30 ML, EpINEphrine HCL INJ 0.... INFIL SCH ×8 (06:00)
[2017-06-27] MEDS ORDERED: GABAPENTIN 300 MG CAP PO SCH (06:00)
[2017-06-27] MEDS ORDERED: ACETAMINOPHEN 500 MG TAB PO SCH (06:00)
[2017-06-27] MEDS ORDERED: BUPIVACAINE 0.5 % 5 MG/1 ML PF 10ML VIAL ONE (06:26)
[2017-06-27] MEDS ORDERED: BUPIVACAINE 0.25% 30 ML VIAL ONE (06:27)
[2017-06-27] MEDS: TRANEXAMIC ACID INJ 1,000 MG in SYRINGE 0 ML IV SCH ×2 (06:30→08:42)
[2017-06-27] MEDS ORDERED: PROPOFOL IV EMULSION 10 MG/ML 20 ML VIAL IV ONE (08:09)
[2017-06-27] MEDS ORDERED: LIDOCAINE HCL 2% 2 ML VIAL (20MG/ML) ONE (08:09)
[2017-06-27] MEDS ORDERED: MIDAZOLAM HCL 1 MG/ML 2ML VIAL ONE (08:09)
[2017-06-27] MEDS ORDERED: AZITTAB PO (08:12)
[2017-06-27] MEDS ORDERED: ORTHO JOINT ANESTHETIC ONE (09:08)
[2017-06-27] MEDS ORDERED: BACITRACIN 50000 UNIT VIAL ONE (09:08)
[2017-06-27] MEDS ORDERED: FENTANYL CITRATE INJ 50 MCG/1 ML 2 ML VIAL ONE (09:36)
[2017-06-27] MEDS ORDERED: ATROPINE SULFATE 0.1 MG/ML 5ML SYR IV PRN (10:00)
[2017-06-27] MEDS ORDERED: HYDROmorphone INJ 2 MG/ML SYR/VIAL IV PRN (10:00)
[2017-06-27] MEDS ORDERED: ONDANSETRON INJ 2 MG/ML 2 ML VIAL IV PRN ×2 (10:00→12:45)
[2017-06-27] MEDS ORDERED: ONDANSETRON INJ 2 MG/ML 2 ML VIAL ONE (10:01)
[2017-06-27] MEDS ORDERED: EpHEDrine SULFATE 50MG/5ML SYR ONE (10:29)
[2017-06-27] MEDS ORDERED: ROCURONIUM BROMIDE 10 MG/ML 5 ML VIAL IV ONE (10:29)
[2017-06-27] MEDS ORDERED: GLYCOPYRROLATE INJ 0.2 MG/ML VIAL ONE ×2 (10:29→12:07)
[2017-06-27] MEDS ORDERED: NEOSTIGMINE METHYLSULFATE 5 MG/5 ML SYR ONE ×2 (10:29→12:07)
--- NOTE | 2017-06-27 12:44 | [facility] Post Operative Brief Note ---
Immediate Operative Summary Operative Date Jun 27, 2017. Pre-Operative Diagnosis Bilateral osteoarthritis of the knees Post-Operative Diagnosis Bilateral osteoarthritis of the knees Procedure(s) Performed Bilateral total knee arthroplasty, cemented Surgeon Dr. Martinez Mail Distributor Surgeon(s) Wojciech Jarrett PA-C Estimated Blood Loss 20 mL Findings as above Specimens A: Right knee bone and tissue B: Left knee bone and tissue Complication(s) None Disposition Recovery Room / PACU
[2017-06-27] MEDS ORDERED: ZOLPIDEM TARTRATE 5 MG TAB PO PRN (12:45)
[2017-06-27] MEDS ORDERED: GLUCAGON FOR INJ 1 MG VIAL SQ PRN (12:45)
[2017-06-27] MEDS ORDERED: GLUCOSE 10 TABS/TUBE PO PRN (12:45)
[2017-06-27] MEDS ORDERED: DEXTROSE 50% 50 ML SYR IV PRN (12:45)
[2017-06-27] MEDS ORDERED: BISACODYL 10 MG SUPP PR PRN (12:45)
[2017-06-27] MEDS ORDERED: SILVER SULFADIAZINE 1% CR 50 GM JAR EXT PRN (12:45)
[2017-06-27] MEDS ORDERED: METOCLOPRAMIDE HCL INJ 5 MG/ML 2 ML VIAL IV PRN (12:45)
[2017-06-27] MEDS ORDERED: DC ALL PREVIOUSLY ORDERED DIABETES MEDS ONE (12:45)
[2017-06-27] MEDS ORDERED: GLUCOSE 40% GEL 15 GM TUBE PO PRN (12:45)
[2017-06-27] MEDS: SODIUM CHLORIDE 0.9% 1000ML 1,000 ML IV SCH ×2 (12:45→22:42)
[2017-06-27] MEDS ORDERED: SOD PHOSPHATE/SOD BIPHOSPHATE ENEMA 132 ML BTL PR PRN (12:45)
[2017-06-27] MEDS ORDERED: PHARMACY GLYCEMIC MGMT CONSULT SCH (13:05)
--- NOTE | 2017-06-27 13:22 | OPERATIVE REPORT ---
DATE OF OPERATION: 06/27/2017 PREOPERATIVE DIAGNOSIS: Primary osteoarthritis, bilateral knees. POSTOPERATIVE DIAGNOSIS: Same. PROCEDURE: Bilateral total knee arthroplasty. SURGEON: Dr. Hank Martinez. GUEST RELATIONS RECEPTIONIST: Rob Jarrett PA-C, whose assistance was necessary for retraction and closure. ANESTHESIA: Spinal anesthetic with general. COMPLICATIONS: None. CONDITION: Stable to PACU. IMPLANTS USED: The same implants were used on both the left and the right side. I used a Biomet Vanguard total knee arthroplasty system with a size 65 femur, a size 75 tibia, a size 31 x 8 patella and a size 10 posterior stabilized poly. 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 The left was a little worse than right. X-rays and clinical examination were diagnostic for primary osteoarthritis of both knees. He was having a lot of pain and requested bilateral total knee arthroplasties. He understood the risks, benefits, and alternatives to procedure and elected to proceed. DESCRIPTION OF PROCEDURE: On 06/27/2017, he arrived at [facility] for the above procedure. He was seen in the preoperative holding area and the operative extremities were identified and signed. He was then given a preoperative antibiotic and a spinal anesthetic. They did not feel that the spinal got a full block, so decided to do a general on top. He was taken back to the operating room, laid on the table in supine position and put under general anesthesia. The bilateral knees were then prepped and draped in sterile fashion. Time-out was done and the patient's operative extremities were properly identified. The right knee was done first. A longitudinal incision was made directly over the patella. Dissection was taken down to the extensor mechanism and a medial parapatellar approach was used. The medial retinaculum was released and the knee was flexed. A drill was sent down the center of the femoral canal, followed by an intramedullary carrillo. Off that carrillo, a distal femoral cutting block was placed. A 12 mm was then resected off the distal femur at 5 degrees of valgus. A posterior referencing guide was then used and the femur measured to be a size 65. Two drill holes were placed in 3 degrees of external rotation. Anterior, posterior and chamfer cuts were then made. The box cutting guide was then attached and the box was resected for the posterior stabilizing component. Attention was then turned to the proximal tibia. A drill was sent down the center of the tibial canal followed by an intramedullary carrillo. Off that carrillo, a proximal tibial resection guide was placed and 4 mm was taken off the low medial side. The tibia measured to be a size 75. It was set in the appropriate rotation, drilled and then punched. The posterior aspect of the knee was then opened up and any extra meniscal remnants were removed. Trial components were then placed. The knee was brought through a full range of motion and felt to be stable. The patella was then everted and 8 mm was resected off the posterior aspect of the patella. The patella measured to be a size 31 and 3 drill holes were placed for the pegs. A trial patella was placed. The knee was brought through a full range of motion and felt to be stable. The trial components were then removed. The surrounding soft tissues were injected with 50 mL of an orthopedic pain control cocktail. The femoral, tibial, and patellar components were then cemented in place with Palacos-G cement. A size 10 posterior stabilized poly was snapped into place and the anterior bar was locked. The entire knee was then irrigated with 3 liters of normal saline solution with bacitracin. Two drains were placed. The extensor mechanism was closed with #2 FiberWire suture in the superior medial aspect and #1 Vicryl both proximally and distally. Skin was then closed with 2-0 Vicryl, 3-0 V-Loc suture and jero. He was then placed in a soft compressive dressing. Attention was then turned to the left knee. The left knee was done in a similar manner of the right knee. The same component sizes were used as well. The left knee was also placed in a soft compressive dressing. He was then extubated, transferred to a [facility] and taken to the postanesthesia care unit in stable condition. He tolerated the procedure well. I attest to the content of the Intraoperative Record and any orders documented therein. Any exception s are noted below.
--- NOTE | 2017-06-27 13:47 | Anesthesiology Progress Note ---
Anesthesia Post Op Note Date & Time Jun 27, 2017 at 13:47 Vital Signs Pain Intensity: 0 Vital Signs Past 12 Hours Date Time Temp Pulse Resp B/P (MAP) Pulse Ox O2 Delivery O2 Flow Rate FiO2 06/27/17 13:20 36.3 68 17 148/77 99 Nasal Cannula 2 06/27/17 13:10 68 17 149/73 98 Nasal Cannula 2 06/27/17 13:00 70 16 147/75 98 Nasal Cannula 2 06/27/17 12:50 60 16 161/76 100 Oxymask 10 06/27/17 12:40 70 16 159/64 98 Oxymask 10 06/27/17 12:31 36.4 80 16 167/86 99 Oxymask 10 06/27/17 07:40 36.7 64 20 135/92 97 Room Air Notes Mental Status: alert / awake / arousable, participated in evaluation Pt Amnestic to Procedure: Yes Nausea / Vomiting: adequately controlled Pain: adequately controlled Airway Patency, RR, SpO2: stable & adequate BP & HR: stable & adequate Hydration State: stable & adequate Anesthetic Complications: no major complications apparent
--- NOTE | 2017-06-27 13:51 | DIAGNOSTIC IMAGING REPORT ---
LEFT KNEE 2 VIEWS History: Left total knee arthroplasty. Degenerative arthritis. Postop. FINDINGS: The patient is status post a left total knee arthroplasty. The hardware is intact. No fracture or dislocation. Skin jero and surgical drains are in place. IMPRESSION: Left total knee arthroplasty. No evidence for hardware complication. Electronically signed by: Víctor Fisher M.D. 06/27/2017 1:50 PM Dictated Date/Time: 06/27/2017 1:49 PM
--- NOTE | 2017-06-27 13:52 | DIAGNOSTIC IMAGING REPORT ---
RIGHT KNEE 2 VIEWS History: Right total knee arthroplasty. Degenerative arthritis. Postop. FINDINGS: The patient is status post a right total knee arthroplasty. The hardware is intact. No fracture or dislocation. Skin jero and surgical drains are in place. IMPRESSION: Right total knee arthroplasty. No evidence for hardware complication. Electronically signed by: Víctor Fisher M.D. 06/27/2017 1:51 PM Dictated Date/Time: 06/27/2017 1:50 PM
--- NOTE | 2017-06-27 14:14 | Pharmacy Progress Note ---
Glycemic Control Intl Consult Date of Service Jun 27, 2017. Scope Glycemic Pharmacist consulted by Dr Martinez on 06/27/17 for glycemic control and to write orders per [facility] inpatient glycemic control protocol Objective Weight (Kilograms): 95.00 Accuchecks BSG (last 24hrs): Test 06/27/17 08:06 06/27/17 12:41 Bedside Glucose 124 mg/dl (70-99) 128 mg/dl (70-99) HbA1c 6.5% on 03/03/17 Recent Pertinent Medications Outpatient Anti-diabetic Regimen: * Metformin ER 500mg PO BIDM Risk Factors for Insulin Resistance: * Recent Surgery * Diet Assessment & Plan ASSESSMENT: * 71yo T2DM male with well controlled diabetes as an outpatient per recent A1c in February. However, this is past 90 days old, therefore, will re-order per protocol. * Pt is maintained on oral antidiabetic agents as an outpatient * Oral agents are not recommended for inpatient use d/t drug interactions, changing PO intake, and difficulty titrating for acute hyper/hypoglycemia. ADA recommends re-initiating outpatient oral agents 1-2 days prior to discharge if/ when appropriate if they were held on admission. * Will hold oral agents for admission and utilize SQ basal bolus insulin regimen which is the recommended regimen for inpatient glycemic control. * Will initiate weight based insulin dosing for insulin avel patient and titrate based on BSG trends. * Start basal insulin for BSG > 180 mg/dl PLAN FOR INPATIENT GLYCEMIC CONTROL: * Holding outpatient oral diabetes medications * Will resume POD#1-2 after renal function/PO intake adequate * Basal insulin IF BSG >180 mg/dl * Lantus 15 units if BSG >180 mg/dl * Bolus insulin * NovoLog per scale ACHS or Q6hrs while NPO * Goal Range: Low 110 mg/dL - High 140 mg/dL * Correction Factor: 25 mg/dL/unit * Nutritional / Prandial insulin per carb ratio of 1 unit per 8 grams CHO consumed * Please note that the plan above was derived based on current level of insulin resistance and hospital stress. These recommendations are appropriate for inpatient admission only. Plan of care upon discharge will need to be reassessed to avoid potential outpatient hypo/hyperglycemia. Thank you.
[2017-06-27] MEDS: OXYCODONE HCL IR 5 MG TAB (IMMEDIATE RELEASE) PO PRN (15:03)
[2017-06-27] MEDS: MoRPHine SULFATE 2 MG/ML CARP IV PRN (15:27)
[2017-06-27] MEDS ORDERED: INSULIN GLARGINE SOLOSTAR 100 UNITS/ML 3 ML PEN SC SCH (17:15)
[2017-06-27] MEDS: INSULIN ASPART 100 UNITS/ML 3 ML PEN SC SCH ×2 (18:32→20:52)
[2017-06-27] MEDS: KETOROLAC TROMETHAMINE 15 MG/ML VIAL IV. SCH ×2 (18:33→23:42)
[2017-06-27] MEDS: CEFAZOLIN IV 2,000 MG in SYRINGE 0 ML IV SCH (19:58)
[2017-06-27] MEDS: ACETAMINOPHEN IV 1,000 MG in EMPTY BAG 0 ML IV SCH (19:58)
[2017-06-27] MEDS: DOCUSATE SODIUM 100 MG CAP PO SCH (20:50)
[2017-06-27] MEDS: SENNA 8.6 MG TAB PO SCH (20:51)
[2017-06-28] MEDS: MoRPHine SULFATE 2 MG/ML CARP IV PRN ×2 (02:16→11:43)
[2017-06-28 03:26] VITALS: BP 136/73; PULSE 76; TEMP 36.6; O2SAT 98
[2017-06-28] MEDS: CEFAZOLIN IV 2,000 MG in SYRINGE 0 ML IV SCH (03:57)
[2017-06-28] MEDS: ACETAMINOPHEN IV 1,000 MG in EMPTY BAG 0 ML IV SCH ×3 (03:57→19:09)
[2017-06-28] MEDS: KETOROLAC TROMETHAMINE 15 MG/ML VIAL IV. SCH ×4 (05:45→23:22)
[2017-06-28] MEDS: RIVAROXABAN 10 MG TAB PO SCH (06:28)
[2017-06-28 06:33] LABS: HEMATOCRIT 30.9 % (42-52); MEAN CELL VOLUME 87.5 fL (80-100); MEAN CORPUSCULAR HEMOGLOBIN 28.9 pg (25-34); MEAN PLATELET VOLUME 9.9 fL (7.4-10.4); PLATELET COUNT 173 K/uL (130-400); RED BLOOD COUNT 3.53 M/uL (4.7-6.1); WHITE BLOOD COUNT 9.49 K/uL (4.8-10.8)
[2017-06-28 06:51] LABS: ESTIMATED AVERAGE GLUCOSE 134 mg/dl; HA1C FLAG Normal (Normal)
[2017-06-28 07:08] LABS: BUN/CREATININE RATIO 12.9 (10-20); CALCIUM 8.3 mg/dl (8.5-10.1); CREATININE 1.01 mg/dl (0.60-1.40); POTASSIUM 4.1 mmol/L (3.5-5.1)
[2017-06-28 07:21] VITALS: BP 108/62; PULSE 73; TEMP 37; O2SAT 94
--- NOTE | 2017-06-28 08:40 | PROGRESS NOTE ---
DATE: 06/28/2017 CHIEF COMPLAINT: Status post bilateral total knee arthroplasty, postop day #1. PROGRESS: Teofilo was seen and examined at bedside today. Overall, he is doing okay. He has a little bit of soreness in his knee, but it is not too bad. He was able to ambulate around his room last night. He has not been up and get this morning. He has no other complaints. PHYSICAL EXAMINATION: Both knees, the dressings are clean and dry and the drain is to suction. He has active dorsiflexion and plantarflexion of both ankles and sensation is intact. He is lying with his knees out in full extension. DATA: He has an H&H today of 10.2 and 30.9. His glucose is running high at 206 and is currently on insulin. Vital signs are stable on room air and he is voiding on own. X-rays postoperatively of both knees show the prosthesis to be in anatomical alignment without any evidence of fracture, dislocation, or loosening. IMPRESSION: Status post bilateral total knee arthroplasty, postop day #1. PLAN: At this point, he is doing well and happy with his progress. He is on Xarelto for DVT prophylaxis. Therapy will have him up and ambulating today. We will work on pain control throughout the day today and we will plan to discharge him home either tomorrow or Friday.
[2017-06-28] MEDS: PANTOprazole SOD 40 MG TAB PO SCH (08:48)
[2017-06-28] MEDS: MULTIVITAMIN TAB PO SCH (08:48)
[2017-06-28] MEDS: DOCUSATE SODIUM 100 MG CAP PO SCH ×2 (08:48→20:39)
[2017-06-28] MEDS: INSULIN ASPART 100 UNITS/ML 3 ML PEN SC SCH ×4 (08:49→20:42)
[2017-06-28] MEDS: OXYCODONE HCL IR 5 MG TAB (IMMEDIATE RELEASE) PO PRN ×4 (08:53→23:26)
[2017-06-28] MEDS ORDERED: INSULIN GLARGINE SOLOSTAR 100 UNITS/ML 3 ML PEN SC SCH (09:00)
[2017-06-28] MEDS: SODIUM CHLORIDE 0.9% 1000ML 1,000 ML IV SCH (09:46)
[2017-06-28 10:46] VITALS: BP 139/73; PULSE 84; O2SAT 99
--- NOTE | 2017-06-28 12:07 | Pharmacy Progress Note ---
Glycemic Control Progress Note Date of Service Jun 28, 2017. Scope Glycemic Pharmacist consulted for glycemic control to write orders per [facility] inpatient glycemic control protocol. Objective Accuchecks BSG (last 24hrs): Test 06/27/17 12:41 06/27/17 14:21 06/27/17 17:26 06/27/17 20:45 Bedside Glucose 128 mg/dl (70-99) 139 mg/dl (70-99) 157 mg/dl (70-99) 189 mg/dl (70-99) Test 06/28/17 06:03 06/28/17 07:49 Random Glucose 171 mg/dl (70-99) Bedside Glucose 206 mg/dl (70-99) HbA1c: Test 06/28/17 06:03 Hemoglobin A1c 6.3 % (4.5-5.6) H Recent Pertinent Medications Outpatient Anti-diabetic Regimen: * Metformin ER 500mg PO BIDM Risk Factors for Insulin Resistance: * Recent Surgery * Diet Outpatient Anti-Diabetic Meds Metformin ER 500mg PO BIDM Assessment & Plan ASSESSMENT: * 71yo T2DM male with well controlled diabetes as an outpatient per recent A1c * Pt is maintained on oral antidiabetic agents as an outpatient * Oral agents are not recommended for inpatient use d/t drug interactions, changing PO intake, and difficulty titrating for acute hyper/hypoglycemia. ADA recommends re-initiating outpatient oral agents 1-2 days prior to discharge if/ when appropriate if they were held on admission. * Oral agents held on admission and weight based SQ basal bolus insulin regimen initiated. * Pt did not receive basal insulin last evening at dinner check d/t BSG<180 * BSG significanly elevated this morning at 206 mg/dl --> basal insulin started at conservative dose 15 units (0.16 units/kg) * Pt received 9 units of NovoLog to cover BSG = 206 mg/dl & CHO from breakfast. Unfortunately, he had a low BSG of 56, 59 mg/dl prior to lunch. * Will d/c basal insulin, remove CR and resume metformin as patient is tolerating PO, renal function WNL, and anticipating discharge in 1-2 days. PLAN FOR INPATIENT GLYCEMIC CONTROL: * Resume outpatient oral diabetes medication * DISCONTINUE Basal insulin * Bolus insulin * NovoLog per scale ACHS or Q6hrs while NPO * Goal Range: Low 110 mg/dL - High 140 mg/dL * Correction Factor: 30 mg/dL/unit * DISCONTINUE Nutritional / Prandial insulin per carb ratio of 1 unit per -- grams CHO consumed * Please note that the plan above was derived based on current level of insulin resistance and hospital stress. These recommendations are appropriate for inpatient admission only. Plan of care upon discharge will need to be reassessed to avoid potential outpatient hypo/hyperglycemia. Thank you.
[2017-06-28] MEDS: TAMSULOSIN HCL 0.4 MG CAP PO SCH (12:37)
[2017-06-28 14:51] VITALS: BP 130/70; PULSE 86; TEMP 37.2; O2SAT 94
[2017-06-28] MEDS: METFORMIN HCL 500 MG TABCR PO SCH (17:32)
[2017-06-28] MEDS: SENNA 8.6 MG TAB PO SCH (20:39)
[2017-06-28] MEDS: MAGNESIUM HYDROXIDE SUSP 30 ML UDC PO PRN (20:40)
[2017-06-28 23:19] VITALS: BP 131/69; PULSE 94; TEMP 37.3; O2SAT 93
[2017-06-29] MEDS: ACETAMINOPHEN IV 1,000 MG in EMPTY BAG 0 ML IV SCH ×3 (04:06→20:07)
[2017-06-29] MEDS: OXYCODONE HCL IR 5 MG TAB (IMMEDIATE RELEASE) PO PRN (05:48)
[2017-06-29] MEDS: KETOROLAC TROMETHAMINE 15 MG/ML VIAL IV. SCH ×2 (05:48→11:22)
[2017-06-29] MEDS: PANTOprazole SOD 40 MG TAB PO SCH (05:49)
[2017-06-29] MEDS: MAGNESIUM HYDROXIDE SUSP 30 ML UDC PO PRN (05:54)
[2017-06-29] MEDS: RIVAROXABAN 10 MG TAB PO SCH (06:09)
[2017-06-29] MEDS ORDERED: XRL10 PO (06:32)
[2017-06-29] MEDS ORDERED: RXC5 PO (06:32)
--- NOTE | 2017-06-29 06:34 | Discharge Instructions ---
Discharge Instructions Date of Service Jun 29, 2017. Admission Reason for Admission: Right Knee Degernative Joint Disease Discharge Discharge Diagnosis / Problem: Bilateral Total Knees Discharge Goals Goal(s): Decrease discomfort, Improve function Activity Recommendations Activity Limitations: as noted below . Instructions / Follow-Up Instructions / Follow-Up Activity and Therapy Recommendations: * If you are using [facility] then Physical Therapy will be provided until they feel you are ready to start Outpatient Physical Therapy. If you are not using a Home Health agency then Outpatient Physical Therapy should start about 3-5 days from your day of surgery. Therapy will last about 6-10 weeks * It is important not to put a pillow under your knee when you are relaxing or sleeping. It is just as important to make sure you are getting your knee perfectly straight as it is to regain your knee bend. * You were shown a series of exercises in the hospital. Do these exercises three times each day including the exercises you were shown in physical therapy. * Get up and walk several times each day. For the first four weeks, try not to stand or walk for more than one hour at a time. If you do stand or walk for more than one hour, you will not hurt anything, but your leg will likely swell. * As you feel comfortable, you may change from the walker or crutches to a cane and then to independent walking. Medications: * Narcotic You will likely be sent home from the hospital with a prescription for the narcotic pain medication that worked best throughout your stay. * Aspirin Most patients will be required to take Aspirin 325mg twice a day for 6 weeks after surgery. This is obtained [id number] and a prescription is not necessary. * Other medications may be prescribed for specific circumstances. If you have any questions, please call the office at . * Resume previous home medications unless otherwise instructed TEDs/Elastic Stockings: The white elastic stockings help limit swelling and prevent blood clots from forming in your legs.~ The more you wear them, the more they work. Wear them for six weeks. Showering: You may shower 5 days from the day of surgery. Let the soapy shower water run over the jero. Do not scrub or soak the incision. Things To Watch For: * Drainage from the incision site that occurs more than one week after your surgery. * Increased redness at the incision site. * Fever above 102 degrees Fahrenheit. * Unusual chest pain or shortness of breath. * Call [facility] at with any of the above problems Follow-Up Visit: Follow-up with Dr. Martinez 2 weeks after your day of surgery. An appointment was probably scheduled when you signed-up for surgery in the office. If you have any questions call Office Instructions: More detailed instructions as well as Frequently Asked Questions were provided in a folder by our office when you signed-up for surgery. Please review these instructions when you get home. If you have any further questions or concerns, please feel free to call the office at [phone] Current Hospital Diet Patient's current hospital diet: Diabetes Type 2 Diet Discharge Diet Recommended Diet: Diabetes Type 2 Diet Procedures Procedures Performed: Bilateral total knee arthroplasty, cemented Pending Studies Studies pending at discharge: no Laboratory Results Hemoglobin A1c Test 06/28/17 06:03 Range/Units Estimated Average Glucose 134 mg/dl Hemoglobin A1c 6.3 H 4.5-5.6 % Medical Emergencies . Who to Call and When: Medical Emergencies: If at any time you feel your situation is an emergency, please call 911 immediately. . Non-Emergent Contact Non-Emergency issues call your: Surgeon Call Non-Emergent contact if: wound has increased drainage, wound has increased redness . "Provider Documentation" section prepared by Hank Martinez. . VTE Core Measure Inpt VTE Proph given/why not?: Other Anticoagulation (Xerelto 10mg daily for 2 weeks)
[2017-06-29 06:59] VITALS: BP 126/71; PULSE 89; TEMP 37.2; O2SAT 92
[2017-06-29] MEDS: INSULIN ASPART 100 UNITS/ML 3 ML PEN SC SCH ×4 (08:00→21:35)
--- NOTE | 2017-06-29 08:04 | PROGRESS NOTE ---
DATE: 06/29/2017 CHIEF COMPLAINT: Status post bilateral total knee arthroplasty, postop day #2. SUBJECTIVE: Teofilo was seen and examined at bedside today. He says his knees are feeling better today than it did yesterday. He was able to walk down the hallway yesterday. He says his knees do not feel strong yet. He has been up and ambulating to the bathroom some. He still has pain and weakness in his knees. He does not feel ready to go home today. He is a little more sore than he thought he would be. PHYSICAL EXAMINATION: EXTREMITIES: Both knees, the dressing has been changed and drain has been pulled. There is no drainage. He is lying with his knees out in full extension. He has active dorsiflexion and plantarflexion of his ankles and sensation is intact throughout. VITAL SIGNS: All stable this morning. He is voiding on his own. He has not had a bowel movement yet. IMPRESSION: Status post bilateral total knee arthroplasty, postop day #2. PLAN: He will continue therapy today. We will also continue with pain control. He was taking Xarelto 10 mg daily for DVT prophylaxis. We will plan discharge tomorrow. Initially, we are planning discharge to home. However, he is now thinking about rehab options for a week. We will make sure case management follows up with him.
[2017-06-29] MEDS: METFORMIN HCL 500 MG TABCR PO SCH ×2 (08:33→18:21)
[2017-06-29] MEDS: MULTIVITAMIN TAB PO SCH (08:33)
[2017-06-29] MEDS: DOCUSATE SODIUM 100 MG CAP PO SCH ×2 (08:33→21:24)
[2017-06-29] MEDS: TAMSULOSIN HCL 0.4 MG CAP PO SCH (12:43)
[2017-06-29] MEDS: TRAMADOL HCL 50 MG TAB PO PRN (15:18)
[2017-06-29 16:20] VITALS: BP 178/81; PULSE 88; TEMP 36.8; O2SAT 95
[2017-06-29] MEDS: MoRPHine SULFATE 2 MG/ML CARP IV PRN (18:24)
[2017-06-29] MEDS: SENNA 8.6 MG TAB PO SCH (21:25)
[2017-06-29 23:10] VITALS: BP 131/65; PULSE 92; TEMP 36.7; O2SAT 94
[2017-06-30] MEDS: ACETAMINOPHEN IV 1,000 MG in EMPTY BAG 0 ML IV SCH ×2 (04:26→11:09)
[2017-06-30] MEDS: RIVAROXABAN 10 MG TAB PO SCH (06:37)
--- NOTE | 2017-06-30 07:28 | Clinical Documentation Query ---
CLINICAL DOCUMENTATION QUERY 71-year-old male who was admitted for a bilateral total knee replacement. In your clinical opinion is this patient being managed for: ( ) Acute blood-loss anemia ( ) Not Agree ( ) Other explanation of clinical findings (Please Explain) ( ) Unable to determine (Please Define) ( ) Need to Discuss The medical record reflects the following clinical findings, treatment, and risk factors. Clinical Indicators: Greater than 4gm drop in HGB (15.0 to 10.2) Treatment: CBC, type and screen Risk Factors: S/P surgical event Please clarify and document your clinical opinion in the progress notes and discharge summary. Terms such as "probable", "suspected", "likely", "questionable", "possible", or "still to be ruled out" are acceptable. IF IN AGREEMENT, YOU MUST DOCUMENT ABOVE DIAGNOSTIC STATEMENT IN DAILY PROGRESS NOTES AND DISCHARGE SUMMARY. This document is not part of the patient's record. Thank You, Tiffanie Reddy RN [phone]
[2017-06-30 07:31] VITALS: BP 118/70; PULSE 75; TEMP 36.6; O2SAT 98
[2017-06-30 07:43] VITALS: O2SAT 98
--- NOTE | 2017-06-30 08:00 | Anesthesiology Progress Note ---
Anesthesia Post Op Note Date & Time Jun 30, 2017 at 08:00 Vital Signs Vital Signs Past 12 Hours Date Time Temp Pulse Resp B/P (MAP) Pulse Ox O2 Delivery O2 Flow Rate FiO2 06/30/17 07:43 98 Room Air 06/30/17 07:31 36.6 75 18 118/70 (86) 98 Room Air 06/30/17 07:31 Room Air 06/30/17 00:05 Room Air 06/29/17 23:10 36.7 92 17 131/65 (87) 94 Room Air Notes Mental Status: alert / awake / arousable, participated in evaluation Pt Amnestic to Procedure: Yes Nausea / Vomiting: adequately controlled Pain: adequately controlled Airway Patency, RR, SpO2: stable & adequate BP & HR: stable & adequate Hydration State: stable & adequate Anesthetic Complications: no major complications apparent
[2017-06-30] MEDS: METFORMIN HCL 500 MG TABCR PO SCH (08:26)
[2017-06-30] MEDS: MULTIVITAMIN TAB PO SCH (08:26)
[2017-06-30] MEDS: DOCUSATE SODIUM 100 MG CAP PO SCH (08:26)
[2017-06-30] MEDS: PANTOprazole SOD 40 MG TAB PO SCH (08:27)
[2017-06-30] MEDS: INSULIN ASPART 100 UNITS/ML 3 ML PEN SC SCH ×2 (08:33→12:56)
[2017-06-30] MEDS ORDERED: INSULIN GLARGINE SOLOSTAR 100 UNITS/ML 3 ML PEN SC ONE (09:00)
[2017-06-30 09:43] VITALS: BP 118/70; PULSE 75; TEMP 36.6; O2SAT 98
--- NOTE | 2017-06-30 10:01 | ORTHOPEDICS PROGRESS NOTE ---
DATE: 06/30/2017 SUBJECTIVE: Alert, oriented here this morning. He is in moderate amount of pain. He also describes some weakness of his lower extremities more inability to lift up his legs from his total knee replacement. He is also concerned about his blood sugars which have been relatively well controlled, but he does express a concern. He has no fever, sweats, chills. He denies any confusion, chest pain, shortness of breath. His knees were examined mildly, they are nicely protected and bandaged. I did not take down all the dressings. It seemed appropriate, alignment is good. No calf tenderness. ASSESSMENT: Delightful gentleman with bilateral total knee replacements done just a few days ago in stable condition along with diabetes mellitus. DISPOSITION: [facility] is the perfect place for him. He would like to get his blood sugars really under control prior to going to [facility]. We have been informed that bed is available and he has been accepted. We can put in a discharge order from today. I would prefer medicine to see him prior to discharge.
[2017-06-30] MEDS: TRAMADOL HCL 50 MG TAB PO PRN (10:06)
--- NOTE | 2017-06-30 10:51 | Pharmacy Progress Note ---
Glycemic: Assessment & Plan Date of Service Jun 30, 2017. Assessment & Plan The patient is currently receiving 3 units of insulin per day. BSGs ranging 119 - 182 mg/dl over the past 24hrs. The patient's fasting blood sugar this morning was 179 mg/dL....much unchanged from yesterday evening. This indicates that patient requires Lantus dosing.... last time patient received Lantus 15 units in the morning with 9 units of Novolog the patient had hypoglycemia. Gave a reduced dose of Lantus this morning plus continued no carbohydrate ratio with Novolog. If blood sugars elevated at lunch may need to add carbohydrate ratio back. * Basal insulin: Lantus 10 units SQ x 1 this morning * Correctional Insulin: Novolog Correction per scale ACHS Goal Range: Low 110 mg/dL - High 140 mg/dL Correction Factor: 30 mg/dL/unit * Prandial insulin: Per carb ratio of 1 unit per -- grams CHO consumed BSGs continue to improve, no changes needed to inpatient regimen at this time. Pharmacy will continue to monitor patient daily and write orders per [facility] inpatient glycemic control protocol. Thanks. * Please note that the plan above was derived based on current level of insulin resistance and hospital stress. These recommendations are appropriate for inpatient admission only. Plan of care upon discharge will need to be reassessed to avoid potential outpatient hypo/hyperglycemia.
--- NOTE | 2017-06-30 11:02 | Discharge Instructions ---
Discharge Instructions Date of Service Jun 30, 2017. Admission Reason for Admission: Right Knee Degernative Joint Disease Discharge Discharge Diagnosis / Problem: Diabetes Discharge Goals Goal(s): Improve disease control, Improve nutritional status, Learn about illness Activity Recommendations Activity Limitations: per Instructions/Follow-up section (See orthopedics note) . Instructions / Follow-Up Instructions / Follow-Up Diabetes: - Patient is a T2DM with A1c of 6.3. - Normally doesn't check sugars as he has been relatively stable in 100-120 range. - Was originally on Metformin TID but self reduced to BID dosing due to lows and has followed this regimen since with improvement of A1c to 7.1 to 6.8 and now 6.3 - Patient follows a good diabetic diet at home and has significantly cut out sugars and is active as a hall - Explained that the lifestyle interventions are likely highly contributing to his improvement in diabetes control. - In hospital patient is running highest at 200 but dropping low at 59 but was using insulin therapy in hospital - Would recommend to continue to monitor AC and HS while at [facility] and expect that they will stabilize as likely from stress of procedure and different diet in-hospital than following at home - Biggest concern would be for hypoglycemia and would recommend to continue to monitor and consideration for cessation of anti-diabetic medications completely but would defer to PCP - Given patient age, A1c, and recent bilateral knee surgery he would be more detrimentally affected by hypoglycemia than having sugars running in the 200s - May also have lows that he is not aware of that can be impacting A1c. - Recommend to have PCP follow-up upon D/C from [facility] to continue to monitor sugars Current Hospital Diet Patient's current hospital diet: Diabetes Type 2 Diet Discharge Diet Recommended Diet: Diabetes Type 2 Diet Procedures Procedures Performed: Bilateral total knee arthroplasty, cemented Pending Studies Studies pending at discharge: no Laboratory Results Hemoglobin A1c Test 06/28/17 06:03 Range/Units Estimated Average Glucose 134 mg/dl Hemoglobin A1c 6.3 H 4.5-5.6 % Medical Emergencies . Who to Call and When: Medical Emergencies: If at any time you feel your situation is an emergency, please call 911 immediately. . Non-Emergent Contact Non-Emergency issues call your: Primary Care Provider Call Non-Emergent contact if: you have a fever, your pain is concerning you, you have any medication questions . . "Provider Documentation" section prepared by Maribell Tabares. . VTE Core Measure Inpt VTE Proph given/why not?: Other Anticoagulation (Xerelto 10mg daily for 2 weeks)
--- NOTE | 2017-06-30 11:07 | Medical Consult ---
Consultation Date of Consultation: Jun 30, 2017. Attending Physician: Hank Martinez DO Reason for Consultation: Diabetes Education History of Present Illness Mr. Coffey is a 71 y/o male with PMHx of T2DM and BPH who is S/P Bilateral Knee Replacements this admission. Patient reports that he was initially placed on Metformin TID when he had an A1c of 7.1. He reports that he was having significant lows and ultimately reduced his dose to BID and implemented an appropriate diabetic diet. Since then his A1c has reduced to 6.8 and currently to 6.3 on pre-operative labs. He states he normally does not check his glucose at home as he normally runs 110-120. He says that he becomes symptomatic when glucose drops below 90. Had a long discussion about the stressors of surgery and its impact on glucose control. Given that he doesn't check his glucose regularly at home he may be having higher numbers than he is aware of. However, A1c supports good control on current regimen vs having significant lows. He also states he eats more here than at home which may be factoring into his higher readings. Had a long discussion about diabetes and addressed his concerns. Recommended that [facility] continue to monitor glucose and would anticipate stabilization. Recommend PCP follow-up after rehab as the risk of hypoglycemia in the setting of bilateral knee surgery may far outweigh the long- term benefits of glucose control. Patient likely may be a good candidate for cessation of antidiabetics in the future but would defer to PCP. Did review records and does not appear he had pre-operative steroids. Given his age and overall control, BSGs in 200 range acceptable for this patient. During admission glucose ranged from 59-206. Past Medical/Surgical History Medical Problems: (1) Substernal chest pain Status: Acute Family History FHx: heart disease Social History Smoking Status: Never Smoker Smokeless Tobacco Use: No Alcohol Use: none Drug Use: none Marital Status: Housing Status: lives with family Occupation Status: employed ([employer]) Allergies Coded Allergies: Aspirin (Verified Allergy, Intermediate, HIVES W/ CONTINUED USE, 06/27/17) Latex1 -Allergic Contact Dermititis (Verified Allergy, Intermediate, dermatitis, 06/27/17) Celecoxib (Verified Adverse Reaction, Mild, BLOOD IN STOOL, 06/27/17) Rofecoxib (Verified Adverse Reaction, Mild, BLOOD IN STOOL, 06/27/17) Current Inpatient Medications Current Inpatient Medications Medications (Trade) Dose Ordered Sig/Heriberto Route Start Time Stop Time Status Last Admin Dose Admin Tamsulosin HCl (Flomax Cap) 0.4 mg QDL PO 06/28/17 12:30 07/28/17 12:29 06/29/17 12:43 0.4 MG Oxycodone HCl (Roxicodone Immediate Rel Tab) 1 TABLET FOR PAIN RATING... Q4H PRN PO 06/27/17 12:45 07/11/17 12:44 06/29/17 05:48 10 MG Morphine Sulfate (MoRPHine SULFATE INJ) 2 mg Q2HWA PRN IV 06/27/17 12:45 07/11/17 12:44 06/29/17 18:24 2 MG Magnesium Hydroxide (Milk Of Magnesia Susp) 30 ml Q6H PRN PO 06/27/17 12:45 07/27/17 12:44 06/29/17 05:54 30 ML Bisacodyl (Dulcolax Supp) 10 mg DAILY PRN ID 06/27/17 12:45 07/27/17 12:44 Sodium Biphosphate/ Sodium Phosphate (Fleet Enema) 132 ml DAILY PRN ID 06/27/17 12:45 07/27/17 12:44 Senna (Senokot Tab) 17.2 mg HS PO 06/27/17 21:00 07/27/17 20:59 06/29/17 21:25 17.2 MG Docusate Sodium (coLACE CAP) 100 mg BID PO 06/27/17 21:00 07/27/17 20:59 06/30/17 08:26 100 MG Zolpidem Tartrate (Ambien Tab) 5 mg HSZ PRN PO 06/27/17 12:45 07/27/17 12:44 06/29/17 21:37 5 MG Multivitamins (Multivitamin Tab) 1 tab QAM PO 06/28/17 09:00 07/28/17 08:59 06/30/17 08:26 1 TAB Ondansetron HCl (Zofran Inj) 4 mg Q6H PRN IV 06/27/17 12:45 07/27/17 12:44 Metoclopramide HCl (Reglan Inj) 10 mg Q6H PRN IV 06/27/17 12:45 07/27/17 12:44 Pantoprazole Sodium (Protonix Tab) 40 mg QAM PO 06/28/17 09:00 07/28/17 08:59 06/30/17 08:27 40 MG Silver Sulfadiazine (Silvadene 1% Crm 50GM Jar) 1 appln BID PRN EXT 06/27/17 12:45 07/27/17 12:44 Rivaroxaban (Xarelto Tab) 10 mg Q24H PO 06/28/17 07:00 07/09/17 07:01 06/30/17 06:37 10 MG Acetaminophen 1000 mg/Empty Bag 100 ml @ 400 mls/hr Q8H IV 06/27/17 20:00 07/27/17 19:59 06/30/17 04:26 400 MLS/HR Tramadol HCl (Ultram Tab) 50 mg Q4H PRN PO 06/27/17 12:45 07/27/17 12:44 06/30/17 10:06 50 MG Insulin Aspart (novoLOG ASPART) SLIDING SCALE If C... ACHS SC 06/27/17 16:00 07/27/17 15:59 06/30/17 08:33 2 UNITS Glucose (Glucose 40% Gel) 15-30 GRAMS 15 GRAMS... UD PRN PO 06/27/17 12:45 07/27/17 12:44 Glucose (Glucose Chew Tab) 4-8 Tablets 4 Tabl... UD PRN PO 06/27/17 12:45 07/27/17 12:44 Dextrose (Dextrose 50% 50ML Syringe) 25-50ML OF 50% DW IV FOR... UD PRN IV 06/27/17 12:45 07/27/17 12:44 Glucagon (Glucagon Inj) 1 mg UD PRN SQ 06/27/17 12:45 07/27/17 12:44 Miscellaneous Information (Consult Glycemic Management Pharmacy) 1 ea UD N/A 06/27/17 13:05 07/27/17 13:04 Metformin HCl (Glucophage Extended Rel Tab) 500 mg BIDM PO 06/28/17 17:45 07/28/17 17:44 06/30/17 08:26 500 MG Review of Systems Constitutional: No fever, No chills Respiratory: No shortness of breath Cardiovascular: No chest pain Abdomen: No pain, No nausea, No vomiting, No diarrhea, No constipation Musculoskeletal: + joint pain (b/l knees) Genitourinary - Male: No dysuria Hematologic / Lymphatic: No abnormal bleeding/bruising Physical Exam Date Time Temp Pulse Resp B/P (MAP) Pulse Ox O2 Delivery O2 Flow Rate FiO2 06/30/17 09:43 36.6 75 18 98 Room Air 06/30/17 07:43 98 Room Air 06/30/17 07:31 36.6 75 18 118/70 (86) 98 Room Air 06/30/17 07:31 Room Air 06/30/17 00:05 Room Air 06/29/17 23:10 36.7 92 17 131/65 (87) 94 Room Air 06/29/17 16:20 36.8 88 18 178/81 (113) 95 Room Air 06/29/17 15:30 Room Air General Appearance: WD/WN, no apparent distress Head: normocephalic, atraumatic Eyes: sclerae normal ENT: hearing grossly normal Neck: supple, no JVD, trachea midline Respiratory/Chest: lungs clear, normal breath sounds, no respiratory distress, no accessory muscle use Cardiovascular: regular rate, rhythm, no gallop, no murmur Abdomen/GI: normal bowel sounds, non tender, soft Neurologic/Psych: alert, oriented x 3 Skin: normal color, warm/dry Laboratory Results Last 24 Hours Test 06/29/17 11:46 06/29/17 13:28 06/29/17 17:14 06/29/17 20:27 Bedside Glucose 152 mg/dl 201 mg/dl 119 mg/dl 182 mg/dl Test 06/30/17 07:55 Bedside Glucose 179 mg/dl Assessment & Plan Mr. Coffey is a 71 y/o male with PMHx of T2DM and BPH who is S/P Bilateral Knee Replacements this admission T2DM: A1c 6.3 - Patient appears to have good diabetic control but there is concern for hypoglycemic events skewing A1c - Would continue Metformin ER BID at this time and continue monitoring at [facility] - appears largely related to stressors of surgery - He does not routinely check glucose at home so may have more highs than he is aware - Recommend continued monitoring and risk/benefit evaluation due to hypoglycemia - could use liberalized sliding scale at [facility] but would recommend D /Cing home with only oral agents to reduce hypoglycemic events - Patient reporting a more stringent diabetic diet at home and continues to be active as a vital and these lifestyle modifications may help his overall control of DM. Disposition: - Recommend to continue trending BSGs at [facility] and continue Metformin - consideration for cessation of anti-diabetic medications if continues to have hypoglycemic episodes as risk of hypoglycemia symptoms especially after B/L knee replacement far outweigh the benefits of long-term diabetic control in this gentleman at this time. Patient has implemented a good diet and lifestyle modifications which likely are contributing to his improved glycemic control. Suspect BSGs are stress response and reporting eating more here than at home. - Dr. Urbina will be in to see the patient but from a medical standpoint is cleared for discharge to [facility] with continued BSG checks and PCP follow-up after to consider ongoing adjustments of anti-diabetics. Attending Consult Note & Attestation: Pt seen/examined, chart reviewed, care plan d/w LAUREL Tabares. I agree w/ the wahl components of her documentation. 71yo male with T2DM who underwent b/l TKR this admission. Asked to comment on his glycemic control prior to discharge. He has never taken insulin outside of a hospital setting. Reports good control but as of late has NOT been checking his FSBS at home. Denies any cp, sob, abd pain during this admission. +bowel movement. PMH, PSH, allergies, meds, sochx, famhx, ros - reviewed VSS no fever FSBSs reviewed in detail gen - nad heart - RRR, S1, S2 lungs - CTA b/l abd - soft ext - b/l knee replacements with intact jero, drainage A/P: 1. b/l TKR 2. T2DM - reassured patient that mild hyperglycemia seen post-op is anticipated given perioperative stress. Agree w/ Ms Rayshawn to simply continue the metformin BID after discharge. This can be adjusted as needed at [facility]. 3. mild acute blood loss anemia - recommend ferrous sulfate 325mg BID for about 2 months post-discharge. From a medical standpoint can d/c to [facility] today. Romulo Urbina MD I Additional Copies To Julia Nunez C.R.NScottP
[2017-06-30 11:17] VITALS: BP 154/86; PULSE 88; O2SAT 99
[2017-06-30 11:28] VITALS: BP 166/84; PULSE 88; TEMP 37.2; O2SAT 99
[2017-06-30] MEDS ORDERED: FRRS300 PO (12:01)
[2017-06-30] MEDS: TAMSULOSIN HCL 0.4 MG CAP PO SCH (12:51)
[2017-06-30] MEDS: MoRPHine SULFATE 2 MG/ML CARP IV PRN (12:58)
== END 2017-06-30 13:37 | DRG 462 ==
LOC: C.ACU 05:33 → C.3E 07:30 → ENRESERV 13:07
PROVIDERS: ADMIT Orthopaedic Surgery; ATTEND Orthopaedic Surgery
PROC: 0SRC0J9 Replacement of Right Knee Joint with Synthetic Substitute, Cemented, Open Approach (ICD-10-PCS; principal; 2017-06-27 09:40)
PROC: 0SRD0J9 Replacement of Left Knee Joint with Synthetic Substitute, Cemented, Open Approach (ICD-10-PCS; principal; 2017-06-27 09:40)
DX: M17.0 Bilateral primary osteoarthritis of knee (principal); D62 Acute posthemorrhagic anemia; E11.9 Type 2 diabetes mellitus without complications; N40.0 Benign prostatic hyperplasia without lower urinary tract symptoms; Z79.84 Long term (current) use of oral hypoglycemic drugs; Z79.899 Other long term (current) drug therapy; Z83.3 Family history of diabetes mellitus; Z91.040 Latex allergy status

== ENCOUNTER 2017-07-28 14:15 | Emergency (ER) | payer OTHER ==
[~2017-07-28] VITALS: Ht 162.6 cm; Wt 91.7 kg
[~2017-07-28 14:15] MED LIST changes: -FERR1TAB62 PO; -GABA1CAP PO; -OXYC-57 PO
[2017-07-28 14:17] VITALS: TEMP 36.7; Ht 162.6 cm; Wt 91.7 kg
[2017-07-28] MEDS ORDERED: SODIUM CHLORIDE 0.9% 1000ML 1,000 ML IV STA (14:40)
[2017-07-28] MEDS ORDERED: OPTIRAY 320 IV PRN (14:45)
[2017-07-28 15:05] LABS: BASO % 0.1 %; BASO ABS # 0.01 K/uL (0-0.2); COMPLETE YES; EOS % 3.3 %; HEMATOCRIT 37.1 % (42-52); IG% 0.3 %; LYMPH % 29.8 %; LYMPH ABS # 2.05 K/uL (1.2-3.4); MEAN CELL VOLUME 87.3 fL (80-100); MEAN CORPUSCULAR HEMOGLOBIN 28.5 pg (25-34); MEAN CORPUSCULAR HGB CONC 32.6 g/dl (32-36); MEAN PLATELET VOLUME 9.7 fL (7.4-10.4); MONO % 7.1 %; NEUT % 59.4 %; PLATELET COUNT 290 K/uL (130-400); RED BLOOD COUNT 4.25 M/uL (4.7-6.1); WHITE BLOOD COUNT 6.87 K/uL (4.8-10.8)
[2017-07-28] MEDS ORDERED: FERR1TAB62 PO (15:07)
[2017-07-28] MEDS ORDERED: OXYC-57 PO ×2 (15:07)
[2017-07-28] MEDS ORDERED: GABA1CAP PO (15:07)
[2017-07-28 15:21] LABS: BUN/CREATININE RATIO 19.1 (10-20); CREATININE 1.01 mg/dl (0.60-1.40); POTASSIUM 3.6 mmol/L (3.5-5.1)
--- NOTE | 2017-07-28 16:02 | DIAGNOSTIC IMAGING REPORT ---
CT ANGIOGRAPHY OF THE CHEST, PULMONARY EMBOLUS PROTOCOL CLINICAL HISTORY: Elevated d-dimer. Chest pain. COMPARISON STUDY: Chest CT October 30, 2015 and chest radiograph March 10, 2017. TECHNIQUE: Following IV administration of 103 mL of Optiray-320, helical axial images of the chest were obtained utilizing the pulmonary embolus protocol. Maximal intensity projections and sagittal and coronal reformats were viewed on an independent 3D workstation. IV contrast was administered without complication. A dose lowering technique was utilized adhering to the principles of ALARA. CT DOSE: 452.14 mGy.cm FINDINGS: No central or lobar pulmonary emboli are identified. The segmental and subsegmental pulmonary arteries are suboptimally assessed due to respiratory motion. The heart is mildly enlarged. There is no pericardial effusion. There are no enlarged axillary, mediastinal or hilar lymph nodes. Central airways are patent. No pneumothorax or pleural effusion is present. There is no consolidation to suggest pneumonia. Bony thorax and upper abdomen are unremarkable. IMPRESSION: 1. No pulmonary emboli identified although segmental and subsegmental pulmonary arteries suboptimally assessed due to respiratory motion. 2. No acute intrathoracic findings. 3. Mild cardiomegaly. Electronically signed by: Oliver Cobos M.D. 07/28/2017 4:01 PM Dictated Date/Time: 07/28/2017 3:53 PM
[2017-07-28 16:30] VITALS: BP 143/84; PULSE 80; O2SAT 98
--- NOTE | 2017-07-28 16:56 | EMERGENCY ROOM VISIT NOTE ---
History Report prepared by Karli: Osman Sotomayor Under the Supervision of: Dr. Gino Dumont D.O. First contact with patient: 14:22 Chief Complaint: REFERRED BY DOCTOR Stated Complaint: SENT BY DR - POSSIBLE BLOOD CLOT - ABNORMAL LABS History of Present Illness The patient is a 71 year old male who presents to the Emergency Room with complaints of abnormal laboratory studies occurring today. He was seen by his PCP and had blood testing ordered. He was called with his results shortly prior to arrival and was told that he had an elevated D-dimer. The patient had bilateral knee replacements last month. He had the blood testing ordered because he has been having intermittent "sharp" chest pains. He states that his chest pain is present for seconds to minutes. The patient states that his chest pain is sometimes worsened and sometimes improved with rubbing the effected area. He states that his left arm is "completely numb", but states that this is normal since a previous rotator cuff surgery. His chest pain is unaffected by moving his arms. He also gets the same pains in his legs which has been intermittent but he no longer gets these pains. Sometimes improved with rubbing that area pain for the most part as is the chest it is significantly worsened when he rubs pain/affected area. Pt denies headache, change in vision , fevers, shortness of breath, nausea, vomiting, diarrhea, pain with urination, cough, runny nose, leg swelling or pain, and melena. No coughing up blood. No shortness of breath. Source of History: patient Onset: Today Symptom Intensity: elevated D-dimer Quality: other (abnormal laboratory studies) Associated Symptoms: + chest pain (intermittent, sharp), No fevers, No headache, No cough, No SOB, No vomiting, No abdominal pain, No diarrhea, No urinary symptoms, No weakness, No numbness Note: The patient denies leg swelling or pain. Review of Systems See HPI for pertinent positives & negatives. A total of 10 systems reviewed and were otherwise negative. Past Medical & Surgical Medical Problems: (1) Cervical stenosis of spinal canal (2) Osteoarthritis of knees, bilateral Surgical Problems: (1) H/O left knee surgery (2) Previous back surgery Family History FHx: heart disease Social History Smoking Status: Never Smoker Drug Use: none Marital Status: Housing Status: lives with family Occupation Status: employed Current/Historical Medications Scheduled Ferrous Sulfate (Ferrous Sulfate), 1 TAB PO BID Gabapentin (Neurontin), 100 MG PO HS Metformin Hcl Er (Glucophage Er), 500 MG PO BID Multiple Vitamin (Multiple Vitamin), 1 TAB PO QPM Oxycodone/Acetaminophen 5MG/325MG (Percocet 5MG/325MG), 1 TABLET PO UD Probiotic Product (Probiotic), 1 CAP PO QDL Tamsulosin Hcl (Flomax), 0.4 MG PO HS Scheduled PRN Oxycodone/Acetaminophen 5MG/325MG (Percocet 5MG/325MG), 1 TABLET PO HS PRN for Pain Allergies Coded Allergies: Aspirin (Verified Allergy, Intermediate, HIVES W/ CONTINUED USE, 06/27/17) Latex1 -Allergic Contact Dermititis (Verified Allergy, Intermediate, dermatitis, 06/27/17) Celecoxib (Verified Adverse Reaction, Mild, BLOOD IN STOOL, 06/27/17) Rofecoxib (Verified Adverse Reaction, Mild, BLOOD IN STOOL, 06/27/17) Physical Exam Vital Signs Date Time Temp Pulse Resp B/P (MAP) Pulse Ox O2 Delivery O2 Flow Rate FiO2 07/28/17 16:30 80 18 143/84 98 07/28/17 16:11 80 18 143/84 98 Room Air 07/28/17 14:17 36.7 95 18 153/78 97 Room Air Physical Exam GENERAL: Sitting up in bed, alert, well appearing, well nourished, no distress, non-toxic EYE EXAM: normal conjunctiva. OROPHARYNX: no exudate, no erythema, lips, buccal mucosa, and tongue normal and mucous membranes are moist NECK: supple, no nuchal rigidity, no adenopathy, non-tender LUNGS: Clear to auscultation. Normal chest wall mechanics HEART: no murmurs, S1 normal and S2 normal ABDOMEN: abdomen soft, non-tender, normo-active bowel sounds, no masses, no rebound or guarding. BACK: Back is symmetrical on inspection and there is no deformity, no midline tenderness, no CVA tenderness. SKIN: no rashes and no bruising UPPER EXTREMITIES: upper extremities are grossly normal. LOWER EXTREMITIES: No pitting edema. Well healed incisions over the bilateral knees. Calves are equal bilaterally. NEURO EXAM: Normal sensorium, cranial nerves II-XII grossly intact, normal speech, no gross weakness of arms, no gross weakness of legs. Medical Decision & Procedures ER Provider Diagnostic Interpretation: CT:Per my review, radiologist interpretation. CT ANGIOGRAPHY OF THE CHEST, PULMONARY EMBOLUS PROTOCOL FINDINGS: No central or lobar pulmonary emboli are identified. The segmental and subsegmental pulmonary arteries are suboptimally assessed due to respiratory motion. The heart is mildly enlarged. There is no pericardial effusion. There are no enlarged axillary, mediastinal or hilar lymph nodes. Central airways are patent. No pneumothorax or pleural effusion is present. There is no consolidation to suggest pneumonia. Bony thorax and upper abdomen are unremarkable. IMPRESSION: 1. No pulmonary emboli identified although segmental and subsegmental pulmonary arteries suboptimally assessed due to respiratory motion. 2. No acute intrathoracic findings. 3. Mild cardiomegaly. Electronically signed by: Oliver Cobos M.D. 07/28/2017 4:01 PM Laboratory Results 07/28/17 14:55 Red Blood Count 4.25, Mean Corpuscular Volume 87.3, Mean Corpuscular Hemoglobin 28.5, Mean Corpuscular Hemoglobin Concent 32.6, Mean Platelet Volume 9.7, Neutrophils (%) (Auto) 59.4, Lymphocytes (%) (Auto) 29.8, Monocytes (%) (Auto) 7.1, Eosinophils (%) (Auto) 3.3, Basophils (%) (Auto) 0.1, Neutrophils # (Auto) 4.07, Lymphocytes # (Auto) 2.05, Monocytes # (Auto) 0.49, Eosinophils # (Auto) 0.23, Basophils # (Auto) 0.01 07/28/17 14:55 Test 07/28/17 14:55 White Blood Count 6.87 K/uL (4.8-10.8) Red Blood Count 4.25 M/uL (4.7-6.1) Hemoglobin 12.1 g/dL (14.0-18.0) Hematocrit 37.1 % (42-52) Mean Corpuscular Volume 87.3 fL (80-100) Mean Corpuscular Hemoglobin 28.5 pg (25-34) Mean Corpuscular Hemoglobin Concent 32.6 g/dl (32-36) Platelet Count 290 K/uL (130-400) Mean Platelet Volume 9.7 fL (7.4-10.4) Neutrophils (%) (Auto) 59.4 % Lymphocytes (%) (Auto) 29.8 % Monocytes (%) (Auto) 7.1 % Eosinophils (%) (Auto) 3.3 % Basophils (%) (Auto) 0.1 % Neutrophils # (Auto) 4.07 K/uL (1.4-6.5) Lymphocytes # (Auto) 2.05 K/uL (1.2-3.4) Monocytes # (Auto) 0.49 K/uL (0.11-0.59) Eosinophils # (Auto) 0.23 K/uL (0-0.5) Basophils # (Auto) 0.01 K/uL (0-0.2) RDW Standard Deviation 44.1 fL (36.4-46.3) RDW Coefficient of Variation 13.8 % (11.5-14.5) Immature Granulocyte % (Auto) 0.3 % Immature Granulocyte # (Auto) 0.02 K/uL (0.00-0.02) Anion Gap 3.0 mmol/L (3-11) Est Creatinine Clear Calc Drug Dose 69.5 ml/min Estimated GFR () 86.9 Estimated GFR (Non- 75.0 BUN/Creatinine Ratio 19.1 (10-20) Calcium Level 9.0 mg/dl (8.5-10.1) Troponin I < 0.015 ng/ml (0-0.045) Laboratory results per my review. Medications Administered Medications (Trade) Dose Ordered Sig/Heriberto Route Start Time Stop Time Status Last Admin Dose Admin Sodium Chloride 1,000 ml @ 999 mls/hr Q1H1M STAT IV 07/28/17 14:40 07/28/17 15:40 DC 07/28/17 14:54 999 MLS/HR ECG Indication: chest pain Rate (beats per minute): 82 Rhythm: normal sinus Findings: no ectopy, other (Normal axis) Comparison ECG Date: 03/10/2017 ED Course ED COURSE: Vital signs were reviewed and showed hypertension The patients medical record was reviewed The above diagnostic studies were performed and reviewed. ED treatments and interventions as stated above. 1425: The patient was evaluated in room A4B. A complete history and physical examination was performed. 1440: Ordered Sodium Chloride 1000 ml @ 999 mls/hr IV. 1630: Upon reevaluation, the patient is resting comfortably. I discussed my findings with the patient and he understands and agrees with the treatment plan. Based on the patients age, coexisting illnesses, exam and lab findings the decision to treat as an outpatient was made. The patient remained stable while under my care. The patient appeared well at the time of discharge. Medical Decision Differential diagnoses includes but is not limited to acute coronary syndrome, myocardial infarction, pericarditis, pulmonary embolus, aortic dissection, pneumonia, pneumothorax, musculoskeletal, shingles, esophageal. Patient is a 71-year-old male who presents to ER for sharp jabbing pains intermittently throughout his chest and lower body. He notes these last for anywhere from 1 seconds to a couple of minutes. They're sharp in nature. No shortness of breath arm or jaw pain with it. Are not exertional. Patient notes he has follow-up with a spine surgeon for these pains before and believe that there are musculoskeletal. PCP obtain blood work and his d-dimer was elevated. He did have recent surgery. CT PE was performed showed no proximal PEs. Limited study in the periphery due to motion artifact. Considered performing ultrasound the lower extremities but based on presentation and symptoms I do not believe this to be consistent with PEs. He is not tachycardic. He is not hypoxic. He is otherwise well-appearing. He has absolutely no shortness of breath. When he describes the pain he notes for the vast majority of the time it worsens when he pushes on the spot that hurts. It sometimes does improve. This appears to be purely musculoskeletal. I discussed this with the patient. He'll follow-up with PCP in one to 2 days if symptoms worsen. Discussed with Pt concerning signs and symptoms to watch out for. Pt was instructed to follow up with their PCP and discussed with the patient their option to return to the ED at anytime for persistent or worsening symptoms. The appropriate anticipatory guidance and out-patient management, including indications for return to the emergency department, were explained at length to the patient and understood. Medication Reconcilliation Current Medication List: was personally reviewed by me Blood Pressure Screening Patient's blood pressure: Elevated blood pressure Blood pressure disposition: Elevated BP felt to be situational Impression Primary Impression: Chest pain Scribe Attestation The scribe's documentation has been prepared under my direction and personally reviewed by me in its entirety. I confirm that the note above accurately reflects all work, treatment, procedures, and medical decision making performed by me. Departure Information Dispostion Home / Self-Care Referrals Julia Nunez C.R.N.P (PCP) Forms HOME CARE DOCUMENTATION FORM, IMPORTANT VISIT INFORMATION, WORK / SCHOOL INSTRUCTIONS Patient Instructions My [facility] Additional Instructions Please follow up with your primary care doctor with in the next 24 hours. Any worsening of your symptoms, please return to the ED immediately. This includes any fevers greater than 100.4, worsening pain, chest pain, shortness breath, persistent nausea, vomiting, unable to eat or drink, or any other concerning signs or symptoms from your standpoint. Please take Motrin or Tylenol as needed for pain. If your symptoms continue please follow up for repeat evaluation Problem Qualifiers Primary Impression: Chest pain Chest pain type: unspecified Qualified Codes: R07.9 - Chest pain, unspecified
== END 2017-07-28 16:31 | disposition home or self-care (01) ==
LOC: C.EDB 14:17 → C.EDA 16:31
DX: R07.9 Chest pain, unspecified (principal); M17.2 Bilateral post-traumatic osteoarthritis of knee; Z98.890 Other specified postprocedural states; M48.02 Spinal stenosis, cervical region; Z79.4 Long term (current) use of insulin; Z79.899 Other long term (current) drug therapy; Z88.8 Allergy status to other drugs, medicaments and biological substances; Z91.040 Latex allergy status; Z82.49 Family history of ischemic heart disease and other diseases of the circulatory system

== ENCOUNTER → 2017-07-28 | Outpatient (CLI) | payer OTHER ==
[~2017-07-28] MED LIST changes: +AZITTAB PO; +FERR1TAB62 PO; +FRRS300 PO; +GABA1CAP PO; +OXYC-57 PO; +RXC5 PO; +XRL10 PO
[2017-07-28 12:32] LABS: BASO % 0.3 %; BASO ABS # 0.02 K/uL (0-0.2); COMPLETE YES; EOS % 4.6 %; HEMATOCRIT 37.8 % (42-52); IG% 0.1 %; LYMPH % 35.6 %; LYMPH ABS # 2.49 K/uL (1.2-3.4); MEAN CELL VOLUME 87.9 fL (80-100); MEAN CORPUSCULAR HEMOGLOBIN 28.4 pg (25-34); MEAN CORPUSCULAR HGB CONC 32.3 g/dl (32-36); MEAN PLATELET VOLUME 9.7 fL (7.4-10.4); MONO % 6.3 %; NEUT % 53.1 %; PLATELET COUNT 302 K/uL (130-400)
== END | disposition home or self-care (01) ==
LOC: C.LABPVFM 11:09
PROVIDERS: ATTEND Nurse Practitioner
DX: D64.9 Anemia, unspecified (principal); R07.1 Chest pain on breathing

== ENCOUNTER → 2017-10-14 | Outpatient (CLI) | payer OTHER ==
[~2017-10-14] MED LIST changes: -ACET1TAB84 PO; -AZITTAB PO; +FERR1TAB62 PO; -FRRS300 PO; +GABA100C13 PO; -NSF10F NAE; +OXYC-57 PO; -RXC5 PO; -TRAM-10 PO; -XRL10 PO
[2017-10-14 13:20] LABS: HEMOGLOBIN A1C 6.5 % (4.5-5.6)
[2017-10-14 13:37] LABS: BLOOD UREA NITROGEN 14 mg/dl (7-18); CARBON DIOXIDE 27 mmol/L (21-32); CREATININE 0.77 mg/dl (0.60-1.40); GLUCOSE 130 mg/dl (70-99); POTASSIUM 4.1 mmol/L (3.5-5.1); SODIUM 139 mmol/L (136-145)
[2017-10-14 13:40] LABS: CHOLESTEROL 159 mg/dl (0-200); LDL CHOLESTEROL CALCULATED 104 mg/dl
== END | disposition home or self-care (01) ==
LOC: C.LABPVFM 09:00
PROVIDERS: ATTEND Nurse Practitioner
DX: E78.5 Hyperlipidemia, unspecified (principal); E11.9 Type 2 diabetes mellitus without complications; I10 Essential (primary) hypertension

== ENCOUNTER → 2018-03-10 | Outpatient (CLI) | payer OTHER ==
[~2018-03-10] MED LIST changes: +B-COTAB18 PO; +CALC-51 PEG; +CHOL2000 PO; -FERR1TAB62 PO; +FIBER TAB PO; -GABA100C13 PO; +HYPEPOW8 INTNAS; +MULT-506 PO; -OXYC-57 PO; +SENNTAB23 PO
[2018-03-10 13:11] LABS: BASO % 0.3 %; BASO ABS # 0.02 K/uL (0-0.2); EOS % 3.6 %; EOS ABS # 0.21 K/uL (0-0.5); HEMATOCRIT 43.1 % (42-52); HEMOGLOBIN 14.5 g/dL (14.0-18.0); IG# 0.01 K/uL (0.00-0.02); LYMPH % 39.6 %; LYMPH ABS # 2.33 K/uL (1.2-3.4); MEAN CELL VOLUME 87.2 fL (80-100); MEAN CORPUSCULAR HEMOGLOBIN 29.4 pg (25-34); MEAN CORPUSCULAR HGB CONC 33.6 g/dl (32-36); MEAN PLATELET VOLUME 10.2 fL (7.4-10.4); MONO ABS # 0.41 K/uL (0.11-0.59); NEUT % 49.3 %; NEUT ABS # 2.91 K/uL (1.4-6.5); PLATELET COUNT 217 K/uL (130-400); RED CELL DISTRIBUTION WIDTH CV 13.8 % (11.5-14.5); RED CELL DISTRIBUTION WIDTH SD 43.8 fL (36.4-46.3); WHITE BLOOD COUNT 5.89 K/uL (4.8-10.8)
[2018-03-10 13:34] LABS: HEMOGLOBIN A1C 6.8 % (4.5-5.6)
[2018-03-10 13:43] LABS: BLOOD UREA NITROGEN 16 mg/dl (7-18); CALCIUM 8.4 mg/dl (8.5-10.1); CARBON DIOXIDE 28 mmol/L (21-32); CREATININE 1.07 mg/dl (0.60-1.40); GLUCOSE 142 mg/dl (70-99); SODIUM 138 mmol/L (136-145)
== END | disposition home or self-care (01) ==
LOC: C.LABPVFM 09:10
PROVIDERS: ATTEND Nurse Practitioner
DX: E11.9 Type 2 diabetes mellitus without complications (principal); D64.9 Anemia, unspecified